=== PATIENT | female | born 2000 | race Caucasian/White ===

== ENCOUNTER → 2019-07-06 08:21 | Outpatient (BNVA) | payer MEDICAID, SELFPAY | PROVIDERS: Family Provider Nurse Practitioner; PCP Nurse Practitioner; Visit Provider Obstetrics & Gynecology | DX: Z01.89 Encounter for other specified special examinations (principal) | CPT/HCPCS: 84315 ==

== ENCOUNTER 2019-07-15 19:10 | Emergency (ER) | payer MEDICAID, SELFPAY ==
[2019-07-15 19:17] VITALS: BP 127/76; PULSE 90; RESP 18; TEMP 36.8; O2SAT 96; BMI 31.3
[2019-07-15 19:32] LABS: Basophils % 0.3 %; Eosinophils # 0.1 10^3/uL (0.0-0.8); Eosinophils % 0.7 %; Hematocrit 36.4 % (37.0-47.0); Hemoglobin 12.4 g/dL (11.5-15.3); Lymphocytes % 16.8 %; Mean Corpuscular HGB Conc 34.1 g/dL (30.0-36.0); Mean Corpuscular Hemoglobin 29.7 pg (28.0-34.0); Mean Corpuscular Volume 87.3 fL (81-99); Mean Platelet Volume 10.2 fL (7.4-10.4); Monocytes # 0.6 10^3/uL (0.2-0.9); Monocytes % 5.2 %; Neutrophils # 9.1 10^3/uL (1.8-8.0); Neutrophils % 76.6 %; Nucleated Red Blood Cells % 0 %; Platelet Count 257 10^3/cmm (130-400); Red Blood Count 4.17 10^6/uL (4.1-5.3); Red Cell Distribution Width 12.9 % (12.1-15.1); White Blood Count 11.8 10^3/uL (4.5-13.0)
[2019-07-15 19:46] LABS: Alanine Aminotransferase < 5 U/L (0-33); Alkaline Phosphatase 64 IU/L (35-105); Anion Gap 14.7 (5-19); Aspartate Amino Transferase 12 U/L (0-32); Blood Urea Nitrogen 5 mg/dL (6-20); Calcium 9.7 mg/dL (8.5-10.5); Carbon Dioxide 24 mmol/L (22-29); Chloride 104 mmol/L (98-107); Glomerular Filtration Rate 157.3 mL/min (90-130); Glucose 110 mg/dL (74-109); Potassium 3.7 mmol/L (3.5-5.1); Sodium 139 mmol/L (136-145); Total Bilirubin 0.2 mg/dL (0.15-1.2)
--- NOTE | 2019-07-15 20:02 | ED_ITS ---
Entered by Nhi Phillips, acting as scribe for Vahid Gates DO Jul 15, 2019 19:10 HPI - General Adult General: Chief complaint: General Medical Stated complaint: ABD PAIN/DIZZY/SENT BY DR BENDER/23 WEEKS PREG Time Seen by Provider: 07/15/19 19:56 Source: patient and family Mode of arrival: ambulatory History of Present Illness: HPI narrative: 18 y/o female presents to the ED with complaint of dizziness/abd/back pain. Pt states she tried to take a nap earlier today but she did not feel any better upon waking. Pt was advised by her OB ( Yoel) to come to the ER for evaluation because she is 23 weeks . Pt states she had a fever ( 100.6) prior to her nap. 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 She denies any bleeding or cramping. MD complaint: Dizziness/abd pain Location: abdomen Radiation: back Severity: mild Pain Consistency: constant Relieving factors: none Associated symptoms: Deny chest pain, confusion, dyspnea, headache(s), nausea, rash, palpitations or vomiting Review of Systems Const: Reports: fever; Denies: chills Eyes: Denies: change in vision or blurry vision ENMT: Reports: ear pain; Denies: painful swallowing, swelling of lips/tongue, bleeding gums, dental pain, Change in hearing, nose bleeds, post nasal drip or facial/sinus pain Card: Denies: chest pain, palpitations, irregular heart rhythm, edema, swelling of feet/ankles, shortness of breath on exertion or shortness of breath when lying down Resp: Denies: shortness of breath, productive cough, non-productive cough or wheezing GI: Reports: abdominal pain; Denies: nausea, vomiting, rectal pain, blood in stool or black tarry stool : Reports: blood in urine; Denies: urinary frequency or urinary urgency Musc: Denies: neck pain, redness or joint warmth Skin/Breast: Denies: rash, itching or redness Neuro: Reports: dizziness; Denies: headache, vertigo, confusion or seizure-like activity Psych: Denies: anxiety, visual hallucinations or auditory hallucinations PFSH ED PFSH: Statuses (acute, chronic, etc) shown below reflect problem list status as previously entered and may not be historically accurate Medical History (Updated 07/11/19 @ 15:02 by Ernie Bender MD) Anxiety (Acute) Blood type O- (Acute) Surgical History (Updated 07/11/19 @ 14:36 by Ernie Bender MD) S/P cholecystectomy (Acute 06/04/17) Laparoscopic. Diagnosis: Chronic [facility]stit[facility] [place] [place] S/P tonsillectomy (Acute) under age 10 Social History Smoking and tobacco status: never smoked Alcohol intake: never Additional social history: well balanced diet Physical Exam Const: GENERAL APPEARANCE: well developed ORIENTATION/CONSCIOUSNESS: Yes oriented to person, Yes oriented to place and Yes oriented to time HENMT: COMMON NORMALS: normocephalic, external ears normal and external nose normal HEAD & SCALP: normocephalic; no scalp tenderness FACE & SINUS: normal facial exam NOSE: external nose normal and no nasal discharge EXTERNAL EAR: Yes external ears normal MOUTH: tongue normal TEETH & GINGIVA: no abnormal tooth and associated gingiva THROAT: posterior oropharynx normal; no peritonsillar mass Eye: COMMON NORMALS: PERRL, EOMs intact bilaterally and conjunctivae normal EYELID: eyelids normal CONJUNCTIVA: Yes conjunctivae normal PUPIL: Yes PERRL Chest: COMMONS NORMALS: inspection of chest normal CHEST: No tenderness Resp: COMMON NORMALS: clear to auscultation bilaterally EFFORT & INSPECTION: No tachypneic, No respiratory distress, No retractions, No uses accessory muscles and No tracheal deviation AUSCULTATION: clear to auscultation bilaterally, no rhonchi, no wheezes and lung sounds not diminished Cardio: COMMON NORMALS: regular rate and regular rhythm RATE: regular rate RHYTHM: regular rhythm HEART SOUNDS: no murmurs PERIPHERAL PULSES: radial pulses present GI: COMMON NORMALS: soft to palpation INSPECTION: No abdominal distension AUSCULTATION: No hyperactive bowel sounds and No hypoactive bowel sounds PALPATION: Yes soft, Yes tender (mild Right side), No guarding and No rigid PERCUSSION: no dullness to percussion and no tympanic to percussion : COMMON NORMALS: Yes no CVA tenderness BLADDER/KIDNEY EXAM: Yes no CVA tenderness Back/Pelvis: COMMON NORMALS: no CVA tenderness Neuro: SENSORIUM/ORIENTATION: Yes oriented to person, Yes oriented to place and Yes oriented to time Psych: COMMON NORMALS: mental status grossly normal Skin: COMMON NORMALS: no rashes or lesions noted GENERAL SKIN EXAM: no rashes or lesions noted Course ED course: 18-year-old presents with right-sided pain, evidently a temperature this afternoon. No CVA tenderness. White blood cell count is 11.8 without left shift. Her flu swabs are negative. Other labs are benign. Ultrasound shows normal fetus, appropriate fluid levels. And also showed Howell Arce contractions. She feels improved, less dizzy after 1.5 L. There is no UTI. She has not had any vaginal bleeding. She will be allowed home. Vital Signs: Vital signs: Vital Signs Temperature 98.2 F 07/15/19 19:17 Pulse Rate 83 07/15/19 23:20 Respiratory Rate 18 07/15/19 23:20 Blood Pressure 118/70 07/15/19 23:20 Pulse Oximetry 99 07/15/19 23:20 [facility] - General Adult Lab Data: Labs: Lab Results 07/15/19 07/15/19 07/15/19 Range/Units 19:28 19:28 19:28 WBC 11.8 (4.5-13.0) 10^3/ uL RBC 4.17 (4.1-5.3) 10^6/u L Hgb 12.4 (11.5-15.3) g/dL Hct 36.4 L (37.0-47.0) % MCV 87.3 (81-99) fL MCH 29.7 (28.0-34.0) pg MCHC 34.1 (30.0-36.0) g/dL RDW 12.9 (12.1-15.1) % Plt Count 257 (130-400) 10^3/c mm MPV 10.2 (7.4-10.4) fL Neut % (Auto) 76.6 % Lymph % (Auto) 16.8 % [place] % (Auto) 5.2 % Eos % (Auto) 0.7 % Baso % (Auto) 0.3 % Neut # (Auto) 9.1 H (1.8-8.0) 10^3/u L Lymph # (Auto) 2.0 (1.5-6.5) 10^3/u L [place] # (Auto) 0.6 (0.2-0.9) 10^3/u L Eos # (Auto) 0.1 (0.0-0.8) 10^3/u L Baso # (Auto) 0.0 (0.0-0.1) 10^3/u L Nucleated RBC % (a uto) 0 % Nucleated RBCs # 0.0 /100WBC Sodium 139 (136-145) mmol/L Potassium 3.7 (3.5-5.1) mmol/L Chloride 104 (98-107) mmol/L Carbon Dioxide 24 (22-29) mmol/L Anion Gap 14.7 (5-19) BUN 5 L (6-20) mg/dL Creatinine 0.5 (0.5-0.9) mg/dL GFR Calculation 157.3 H (90-130) mL/min Glucose 110 H (74-109) mg/dL Calcium 9.7 (8.5-10.5) mg/dL Total Bilirubin 0.2 (0.15-1.2) mg/dL AST 12 (0-32) U/L ALT < 5 (0-33) U/L Alkaline Phosphata se 64 (35-105) IU/L C-Reactive Protein 1.8 (0.0-4.9) mg/L Total Protein 7.0 (6.6-8.7) g/dL Albumin 4.0 (3.5-5.2) g/dL Globulin 3.0 (1.3-4.6) g/dL Lipase 13 (13-60) U/L Urine Color (Yellow) Urine Appearance (CLEAR) Urine pH (5-7) Ur Specific Gravit y (1.005-1.030) Urine Protein (Negative) Urine Glucose (UA) (Normal) Urine Ketones (Negative) Urine Occult Blood (Negative) Urine Nitrate (Negative) Urine Bilirubin (NEGATIVE) Urine Urobilinogen (Negative) mg/dL Ur Leukocyte Pastora ase (Negative) Urine RBC (0-2) /hpf Urine WBC (0-5) /hpf Ur Squamous Epith Cells (0-5) Amorphous Sediment Urine Bacteria (NONE) Influenza Type A A g (Negative) POC Influenza B Ag (Negative) 02/01/20 02/01/20 Range/Units 20:32 22:14 WBC (4.5-13.0) 10^3/ uL RBC (4.1-5.3) 10^6/u L Hgb (11.5-15.3) g/dL Hct (37.0-47.0) % MCV (81-99) fL MCH (28.0-34.0) pg MCHC (30.0-36.0) g/dL RDW (12.1-15.1) % Plt Count (130-400) 10^3/c mm MPV (7.4-10.4) fL Neut % (Auto) % Lymph % (Auto) % [place] % (Auto) % Eos % (Auto) % Baso % (Auto) % Neut # (Auto) (1.8-8.0) 10^3/u L Lymph # (Auto) (1.5-6.5) 10^3/u L [place] # (Auto) (0.2-0.9) 10^3/u L Eos # (Auto) (0.0-0.8) 10^3/u L Baso # (Auto) (0.0-0.1) 10^3/u L Nucleated RBC % (a uto) % Nucleated RBCs # /100WBC Sodium (136-145) mmol/L Potassium (3.5-5.1) mmol/L Chloride (98-107) mmol/L Carbon Dioxide (22-29) mmol/L Anion Gap (5-19) BUN (6-20) mg/dL Creatinine (0.5-0.9) mg/dL GFR Calculation (90-130) mL/min Glucose (74-109) mg/dL Calcium (8.5-10.5) mg/dL Total Bilirubin (0.15-1.2) mg/dL AST (0-32) U/L ALT (0-33) U/L Alkaline Phosphata se (35-105) IU/L C-Reactive Protein (0.0-4.9) mg/L Total Protein (6.6-8.7) g/dL Albumin (3.5-5.2) g/dL Globulin (1.3-4.6) g/dL Lipase (13-60) U/L Urine Color Yellow (Yellow) Urine Appearance Cloudy (CLEAR) Urine pH 7 (5-7) Ur Specific Gravit y 1.010 (1.005-1.030) Urine Protein Neg (Negative) Urine Glucose (UA) Norm (Normal) Urine Ketones Negative (Negative) Urine Occult Blood Neg (Negative) Urine Nitrate Negative (Negative) Urine Bilirubin Neg (NEGATIVE) Urine Urobilinogen 1 H (Negative) mg/dL Ur Leukocyte Pastora ase Negative (Negative) Urine RBC Rare (0-2) /hpf Urine WBC 0-4 H (0-5) /hpf Ur Squamous Epith Cells Rare (0-5) Amorphous Sediment 2+ Urine Bacteria 1+ H (NONE) Influenza Type A A g Negative (Negative) POC Influenza B Ag Negative (Negative) Discharge Plan Discharge Patient Disposition: Home, Self-Care Condition: Stable Prescriptions: No Action Gummies 400 mcg-35 mg- 25 mg-5 mg tablet,chewable 2 tab PO DAILY RF: 0 metoclopramide HCl [Reglan] 10 mg tablet 10 mg PO Q6H PRNRF: 0 folic acid 0.8 mg capsule See Rx Instructions .ROUTE QDAY RF: 0 citalopram [Celexa] 40 mg tablet 40 mg PO QDAY RF: 0 Discharge Orders: Discharge Order (Routine); Ordered 07/15/19 Ordered By: Vahid Gates Referrals: Cecilia Aguilar, NEWSPAPER DELIVERY COUNSELOR-C [Primary Care Provider] - Ernie Bender MD [Physician] - 4-7 days Discharge Diet: Advance as tolerated Discharge Activity: Increase activity as tolerated Patient Instructions: Fever in Adults (ED) Activity Restrictions/Additional Instructions: Return for continued fevers, worsening pain, vomiting liquids or medications, other concerning symptoms. Return also for vaginal bleeding, loss of fluid, etc. Discharge Date/Time: 07/15/19 23:15 Coding Level of Care Code ED Bridge Contractor for Chg Fwd The documentation recorded by the Alan donaldson Ashley, accurately reflects the service I personally performed and the decisions made by Kody smith Jeremy John, DO Jul 15, 2019 19:10
--- NOTE | 2019-07-15 20:07 | USR_ITS ---
PROCEDURE INFORMATION: Exam: US , Limited Exam date and time: 07/15/2019 9:18 PM Age: 18 years old Clinical indication: complicated by abdominal or pelvic pain; Right lower quadrant; Second trimester; Gestational age or lmp: 23 weeks 3 day; ; Additional info: Right tend TECHNIQUE: Imaging protocol: Real-time ultrasound of the maternal uterus with image documentation. Exam focused on the clinical indication. COMPARISON: US OB >= 14 weeks fetus [id number] 07/03/2019 3:08 PM FINDINGS: GESTATION: Gestation: Single intrauterine gestation. Heart rate: 160 bpm. Placenta: Anterior grade 0 placenta. BIOMETRY: Estimated gestational age: 23 weeks 4 days. Estimated due date: Estimated due date 11/07/2019. Femur length: Femur length 4.16 cm, 23 weeks 4 days US/US OB limited [id number] IMPRESSION: 1. Single living intrauterine gestation estimated at 23 weeks 4 days. 2. No abnormality identified.
[2019-07-15 20:27] VITALS: BP 115/79; PULSE 91; RESP 19; O2SAT 96
[2019-07-15 20:29] LABS: C Reactive Protein 1.8 mg/L (0.0-4.9); Lipase 13 U/L (13-60)
[2019-07-15] MEDS: sodium chloride 0.9% 1,000 ML 999 ML IV ×2 (20:49→21:52)
[2019-07-15 21:17] VITALS: BP 115/79; PULSE 83; RESP 18; O2SAT 98
[2019-07-15 21:18] LABS: Add Urine Culture? No; Amorphous Sediment Urine 2+; Bacteria Urine 1+; Bilirubin Urine Neg (NEGATIVE); Blood Urine Neg (Negative); Glucose Urine UA Norm (Normal); Ketones Urine Negative (Negative); Leukocyte Esterase Urine Negative (Negative); Nitrate Urine Negative (Negative); Protein Urine Neg (Negative); RBC Urine RARE /hpf (0-2); Squamous Epithelial Cell Urine RARE (0-5); Urine Appearance Cloudy (CLEAR); Urine Color Yellow (Yellow); Urobilinogen Urine 1 mg/dL (Negative); WBC Urine 0-4 /hpf (0-5); pH Urine 7 (5-7)
[2019-07-15 22:50] LABS: Influenza A by IFA Negative (Negative); Influenza B by IFA Negative (Negative)
[2019-07-15 23:20] VITALS: BP 118/70; PULSE 83; RESP 18; O2SAT 99
--- NOTE | 2019-07-18 12:25 | DCPLANNER ---
military exchange wireless manager had message to schedule a follow up appointment for patient with [facility]. military exchange wireless manager called [facility], spoke with Maria M, gave clinic patients information. military exchange wireless manager was told that patients information would be printed and reviewed. Clinic will call ed case manager and patient with appointment information.
--- NOTE | 2019-07-20 15:42 | DCPLANNER ---
Patient has a follow up appointment scheduled for 07.28.19 at 9:[address] Mckeon.
--- NOTE | 2019-08-04 14:51 | DCPLANNER ---
Patient did attend appointment scheduled for 07.28.19 with [facility].
== END 2019-07-15 23:15 | disposition home or self-care (01) ==
PROVIDERS: Nurse Practitioner Family; Emergency Provider Emergency Medicine; Family Provider Nurse Practitioner; PCP Nurse Practitioner
DX: R10.9 Unspecified abdominal pain (principal); R42 Dizziness and giddiness
CPT/HCPCS: 76815; 80053; 81001; 83690; 85025; 86140; 87804; 96360; 96361; 99283; A9270; J7030

== ENCOUNTER → 2019-07-28 10:05 | Outpatient (BNVA) | payer MEDICAID, SELFPAY | PROVIDERS: Family Provider Nurse Practitioner; PCP Nurse Practitioner; Visit Provider Obstetrics & Gynecology | DX: Z34.92 Encounter for supervision of normal pregnancy, unspecified, second trimester (principal) | CPT/HCPCS: 76815; 81003 ==

== ENCOUNTER 2019-08-07 14:00 | Outpatient (CLI) | payer MEDICAID, SELFPAY ==
[2019-08-07 14:27] VITALS: BP 126/74; PULSE 93; TEMP 37.2
[2019-08-07 14:47] VITALS: BP 114/60; PULSE 97
[2019-08-07 15:07] VITALS: BP 134/73; PULSE 79
[2019-08-07 15:27] VITALS: BP 122/62; PULSE 72
[2019-08-07 15:44] LABS: Bilirubin Urine Neg (NEGATIVE); Blood Urine Neg (Negative); Glucose Urine UA Norm (Normal); Ketones Urine Negative (Negative); Nitrate Urine Negative (Negative); Protein Urine Neg (Negative); Sulfosalicylic Acid Urine Negative; Urine Appearance Clear (CLEAR); Urine Color Yellow (Yellow); Urobilinogen Urine Norm (Negative); pH Urine 8 (5-7)
[2019-08-07 15:45] LABS: Bacteria Urine TRACE; Leukocyte Esterase Urine Negative (Negative); Squamous Epithelial Cell Urine 0-4 (0-5)
[2019-08-07 16:23] VITALS: BP 129/70; PULSE 85; TEMP 37.2
[2019-08-07 16:27] VITALS: TEMP 37.2
[2019-08-07 17:32] VITALS: BMI 32.9
== END 2019-08-07 16:27 | disposition home or self-care (01) ==
LOC: OPOB 14:25 → OBGYN 16:18 → OPOB 08-08 08:44
PROVIDERS: Family Provider Nurse Practitioner; PCP Nurse Practitioner; Visit Provider Obstetrics & Gynecology
DX: O26.899 Other specified pregnancy related conditions, unspecified trimester (principal); Z3A.00 Weeks of gestation of pregnancy not specified; R10.9 Unspecified abdominal pain; M54.9 Dorsalgia, unspecified
CPT/HCPCS: 59025; 81001; 99211

== ENCOUNTER → 2019-08-25 10:42 | Outpatient (BNVA) | payer MEDICAID, SELFPAY | PROVIDERS: Family Provider Nurse Practitioner; PCP Nurse Practitioner; Visit Provider Obstetrics & Gynecology | DX: O26.899 Other specified pregnancy related conditions, unspecified trimester (principal); Z67.91 Unspecified blood type, Rh negative | CPT/HCPCS: 81000; 82950; 85027; 86850 ==

== ENCOUNTER 2019-09-05 14:03 | Outpatient (CLI) | payer MEDICAID, SELFPAY ==
[2019-09-05] VITALS (8 sets, daily range): BP systolic 115–134; BP diastolic 70–79; PULSE 79–97; RESP 16; TEMP 36.6–36.8; BMI 51.3
[2019-09-05 15:27] LABS: Nitrazine Paper, PH Negative
[2019-09-05 15:55] LABS: Basophils % 0.4 %; Eosinophils % 0.4 %; Hematocrit 33.4 % (37.0-47.0); Hemoglobin 11.2 g/dL (11.5-15.3); Lymphocytes # 1.3 10^3/uL (1.5-6.5); Lymphocytes % 15.5 %; Mean Corpuscular HGB Conc 33.5 g/dL (30.0-36.0); Mean Corpuscular Volume 86.5 fL (81-99); Mean Platelet Volume 10.7 fL (7.4-10.4); Monocytes # 0.5 10^3/uL (0.2-0.9); Monocytes % 6.2 %; Neutrophils # 6.5 10^3/uL (1.8-8.0); Neutrophils % 76.9 %; Nucleated Red Blood Cells % 0 %; Platelet Count 228 10^3/cmm (130-400); Red Blood Count 3.86 10^6/uL (4.1-5.3); Red Cell Distribution Width 12.9 % (12.1-15.1); White Blood Count 8.5 10^3/uL (4.5-13.0)
--- NOTE | 2019-09-05 18:45 | P.SS_ITS ---
Short Stay Summary Providers Date of Admit/Discharge: 09/05/19 Attending Provider: Ernie Gabriel MD Primary Care Provider: ROBERT Tobar Chief Complaint: FALL HPI History of Present Illness Eliza Alfonso is a 18 year old female 1, para 0-0-1-0 with an LMP of 02/08/2019 and an EDC of 11/15/2019 based on LMP, which places her at 29- 6/7 weeks gestation. Patient presented to labor and delivery at 14: 09 on 09/05/2019 with the complaint of having fallen at home. This occurred at approximately noon today. She stated that she had tripped and hit the right side of her abdomen on some cement steps. She reports soreness of her lower abdomen. She denied any vaginal bleeding. She denied any cramping. She reported the baby had been moving. She reports 4-5 out of 10 in intensity pain. Care: Mainly provided by Dr. Gabriel at [facility]. care had been uncomplicated. Review of Systems Const: Denies: fever or chills ENMT: Denies: throat pain or nasal congestion Card: Denies: chest pain, palpitations or lightheadedness Resp: Denies: shortness of breath, productive cough, non-productive cough or wheezing GI: Reports: abdominal pain; Denies: nausea, vomiting or diarrhea : Reports: urinary frequency; Denies: difficulty urinating, painful urination, blood in urine, genital itching, vaginal bleeding, vaginal discharge or pelvic pain Neuro: Denies: headache, dizziness or seizure-like activity Psych: Denies: anxiety or depression Endo: Denies: cold intolerance Marshall/Lymph: Denies: easy bruising or easy bleeding Home Meds/Allergies Home Medications and Allergies Home Medications Medication Instructions Recorded Confirmed Type PNV 153-FA 400 mcg-om3 35 mg-dha 2 tab PO DAILY tab 07/03/19 08/29/19 History 25 mg-epa 5 mg-fish oil chew tablet citalopram 40 mg tablet 40 mg PO QDAY tab 07/03/19 08/29/19 History folic acid 0.8 mg capsule See Rx Instructions .ROUTE QDAY 07/03/19 08/29/19 History cap metoclopramide HCl 10 mg tablet 10 mg PO Q6H PRN 07/03/19 08/29/19 History Allergies Allergy/AdvReac Type Severity Reaction Status Date / Time Opioids - Morphine Analogues Allergy Severe severe Verified 09/05/19 16:36 neck and spinal pain ketorolac [From Toradol] Allergy Mild vomiting Verified 09/05/19 16:36 PFSH Acute PFSH: Medical History Anxiety Blood type O- Surgical History S/P cholecystectomy (06/04/17) Laparoscopic. Diagnosis: Chronic cholecystitis. Performed by Dr. Pereyra [facility] in [place], [place]. S/P tonsillectomy under age 10 Family History Mother Heart disease CHF Hypertension Hyperlipidemia Thyroid condition Father Hypertension COPD (chronic obstructive pulmonary disease) Grandmother Hypertension maternal and paternal Hyperlipidemia maternal and paternal Grandfather Hypertension maternal and paternal Hyperlipidemia maternal and paternal Social History Smoking and tobacco status: never smoked Second hand smoke exposure: No Alcohol intake: never Substance/Drug Use: never Lives independently: Yes Household members: spouse Marital status: Current occupational status: employed Current occupation: [employer] History of recent travel: No Current gender identity: Female Special zahraa needs: No Additional social history: Vitals/I&O/Wt Weight last 48 hrs Weight 290 lb Admission vitals: Temperature 97.9, Respirations 18, Pulse 95, Blood pressure 130/75, Stated height 5 foot 3 inches, BMI 51.4 Physical Exam Const: COMMON NORMALS: no apparent distress, average body habitus, alert and well nourished GENERAL APPEARANCE: well developed ORIENTATION/CONSCIOUSNESS: Yes oriented to person, Yes oriented to place and Yes oriented to time Neck/C-Spine: GENERAL: Yes trachea midline Resp: COMMON NORMALS: normal respiratory effort and clear to auscultation bila terally AUSCULTATION: clear to auscultation bilaterally Cardio: COMMON NORMALS: regular rate, regular rhythm, no gallops, no murmurs and no rub RATE: regular rate RHYTHM: regular rhythm GI: COMMON NORMALS: soft to palpation, no hepatosplenomegaly and no masses INSPECTION: Yes normal to inspection and No abdominal wall ecchymosis AUSCULTATION: Yes normoactive bowel sounds PALPATION: Yes soft, Yes tender (Right lower abdomen.), Yes no hepatosplenomegaly and No hernia : EXTERNAL FEMALE EXAM: No hernia UTERUS PALPATION: No uterus tender (Fundal height 31 cm) Neuro: SENSORIUM/ORIENTATION: Yes alert, Yes oriented to person, Yes oriented to place and Yes oriented to time Psych: COMMON NORMALS: affect normal MOOD & AFFECT: Yes euthymic mood Skin: COMMON NORMALS: no rashes or lesions noted GENERAL SKIN EXAM: no rashes or lesions noted Hospital Course Hospital Course: Patient was admitted to the hospital for observation due to having fallen at home and hitting her abdomen. Other than soreness to the abdo men. No bleeding or contractions noted. No other problems were identified. No bruising seen on exam. Initial laboratory testing was performed including a CBC and Kleihauer-Betke which both came back normal. monitor was performed with no heart rate abnormalities detected. Patient was monitored overall for approximately 4 hours. Since patient is doing well at this time with normal laboratory testing and no evidence of abruption detected and normal heart rate monitoring, patient is being discharged home. Patient was instructed to return to labor and delivery if she develops contractions has vaginal bleeding or notices changes and movement. SSS Data Data Completed and Pendin09/05/2019 at 15: 33 CBC: WBC 8.5, hemoglobin 11.2, hematocrit 33.4, platelet 228,000 Kleihauer-Betke: Negative Pending at discharge Category Date Time Status CBC Auto Diff [Co mplete Blood Count w/Auto] Timed Lab 09/05/19 21:00 Ordered Procedures Performed: monitoring: Baseline heart rate 140s with baseline shift to the 120s with moderate variability and accelerations present. No decelerations noted. No definite contractions identified. Diagnoses at Discharge Discharge Diagnosis (1) Fall at home: Status: Acute Qualifiers: Encounter type: initial encounter Qualified Code(s): W19.XXXA - Unspecified fall, initial encounter; Y92.009 - Unspecified place in unspecified non-institutional (private) residence as the place of occurrence of the external cause (2) Encounter for supervision of normal first : Status: Acute Qualifiers: Trimester: third trimester Qualified Code(s): Z34.03 - Encounter for supervision of normal first , third trimester Discharge Plan Discharge Patient Disposition: Home, Self-Care Prescriptions: Continued Gummies 400 mcg-35 mg- 25 mg-5 mg tablet,chewable 2 tab PO DAILY RF: 0 metoclopramide HCl [Reglan] 10 mg tablet 10 mg PO Q6H PRNRF: 0 folic acid 0.8 mg capsule See Rx Instructions .ROUTE QDAY RF: 0 citalopram [Celexa] 40 mg tablet 40 mg PO QDAY RF: 0 Discharge Orders: Discharge Order (Routine); Ordered 09/05/19 Ordered By: Ernie Gabriel Referrals: Ernie Gabriel MD [Physician] - (Keep scheduled appointment later this week in the office.) Diet: Regular Activity: Resume usual activity Attestations Medical Necessity Statement*: Patient was monitored for approximately 4 hours and was then discharged home. Time Spent in Patient Care*: less than 30 min Quality Metrics Clinical Quality Measures: During this hospital stay, did patient experience: None Coding Level of Care Code Acute Midwife for Chg Fwd Diagnoses Fall at home W19.XXXA; Y92.009 Encounter type: initial encounter Encounter for supervision of normal first Z34.03 Trimester: third trimester
== END 2019-09-05 19:29 | disposition home or self-care (01) ==
LOC: OPOB 14:06 → OBGYN 14:07
PROVIDERS: Obstetrics & Gynecology; Family Provider Nurse Practitioner; PCP Nurse Practitioner; Visit Provider Obstetrics & Gynecology
DX: Z34.03 Encounter for supervision of normal first pregnancy, third trimester (principal); Z3A.29 29 weeks gestation of pregnancy; Z91.81 History of falling
CPT/HCPCS: 12345; 36415; 83986; 85025; 85460; 99211

== ENCOUNTER → 2019-09-07 09:47 | Outpatient (BNVA) | payer MEDICAID, SELFPAY | PROVIDERS: Family Provider Nurse Practitioner; PCP Nurse Practitioner; Visit Provider Obstetrics & Gynecology | DX: Z34.03 Encounter for supervision of normal first pregnancy, third trimester (principal) | CPT/HCPCS: 81000 ==

== ENCOUNTER → 2019-09-20 08:48 | Outpatient (BNVA) | payer MEDICAID, SELFPAY | PROVIDERS: Family Provider Nurse Practitioner; PCP Nurse Practitioner; Visit Provider Obstetrics & Gynecology Female Pelvic Medicine and Reconstructive Surgery | DX: Z34.90 Encounter for supervision of normal pregnancy, unspecified, unspecified trimester (principal); Z34.03 Encounter for supervision of normal first pregnancy, third trimester; O26.893 Other specified pregnancy related conditions, third trimester; Z67.91 Unspecified blood type, Rh negative | CPT/HCPCS: 81000 ==

== ENCOUNTER → 2019-10-04 14:12 | Outpatient (BNVA) | payer MEDICAID, SELFPAY | PROVIDERS: Family Provider Nurse Practitioner; PCP Nurse Practitioner; Visit Provider Obstetrics & Gynecology | DX: Z34.03 Encounter for supervision of normal first pregnancy, third trimester (principal) | CPT/HCPCS: 81000 ==

== ENCOUNTER 2019-10-09 21:35 | Outpatient (CLI) | payer MEDICAID, SELFPAY ==
[2019-10-09 21:38] VITALS: BMI 35.2
[2019-10-09 21:39] VITALS: TEMP 36.8
[2019-10-09 21:46] VITALS: BP 140/74; PULSE 94
[2019-10-09 22:01] VITALS: BP 141/81; PULSE 97
[2019-10-09 22:16] VITALS: BP 140/77; PULSE 92
[2019-10-09 22:31] VITALS: BP 136/82; PULSE 101
== END 2019-10-09 22:55 | disposition home or self-care (01) ==
LOC: OPOB 21:37 → OBGYN 21:38
PROVIDERS: Family Provider Nurse Practitioner; PCP Nurse Practitioner; Visit Provider Obstetrics & Gynecology
DX: O36.8190 Decreased fetal movements, unspecified trimester, not applicable or unspecified (principal); Z3A.00 Weeks of gestation of pregnancy not specified
CPT/HCPCS: 59025; 99211

== ENCOUNTER 2019-10-12 16:46 | Outpatient (CLI) | payer MEDICAID, SELFPAY ==
[2019-10-12] VITALS (9 sets, daily range): BP systolic 0–153; BP diastolic 0–84; PULSE 82–101; RESP 16; TEMP 36.9; BMI 35.0
[2019-10-12 17:38] LABS: Add Urine Microscopic? NO
[2019-10-12 17:58] LABS: Basophils % 0.2 %; Eosinophils # 0.1 10^3/uL (0.0-0.8); Eosinophils % 0.5 %; Hematocrit 33.6 % (37.0-47.0); Hemoglobin 11.3 g/dL (11.5-15.3); Lymphocytes # 1.5 10^3/uL (1.5-6.5); Lymphocytes % 14.7 %; Mean Corpuscular HGB Conc 33.6 g/dL (30.0-36.0); Mean Corpuscular Hemoglobin 28.9 pg (28.0-34.0); Mean Corpuscular Volume 85.9 fL (81-99); Monocytes # 0.6 10^3/uL (0.2-0.9); Monocytes % 6.4 %; Neutrophils # 7.7 10^3/uL (1.8-8.0); Neutrophils % 77.6 %; Nucleated Red Blood Cells % 0 %; Platelet Count 238 10^3/cmm (130-400); Red Blood Count 3.91 10^6/uL (4.1-5.3); Red Cell Distribution Width 13.8 % (12.1-15.1); White Blood Count 9.9 10^3/uL (4.5-13.0)
[2019-10-12 18:10] LABS: Alanine Aminotransferase 9 U/L (0-33); Albumin Level 3.6 g/dL (3.5-5.2); Alkaline Phosphatase 121 IU/L (35-105); Anion Gap 16.9 (5-19); Aspartate Amino Transferase 17 U/L (0-32); Blood Urea Nitrogen 4 mg/dL (6-20); Carbon Dioxide 20 mmol/L (22-29); Chloride 105 mmol/L (98-107); Globulin 2.9 g/dL (1.3-4.6); Glomerular Filtration Rate 157.3 mL/min (90-130); Glucose 106 mg/dL (65-115); Osmolality Calculated 282 mOsm/kg (285-295); Potassium 3.9 mmol/L (3.5-5.1); Sodium 138 mmol/L (136-145); Total Bilirubin 0.2 mg/dL (0.15-1.2); Total Protein 6.5 g/dL (6.6-8.7); Uric Acid 3.4 mg/dL (2.4-5.7)
[2019-10-12 18:16] LABS: Bilirubin Urine Neg (NEGATIVE); Blood Urine Neg (Negative); Glucose Urine UA Norm (Normal); Ketones Urine Negative (Negative); Leukocyte Esterase Urine Negative (Negative); Nitrate Urine Negative (Negative); Protein Urine Neg (Negative); Sulfosalicylic Acid Urine Negative (Negative); Urine Appearance Clear (CLEAR); Urine Color Straw (Yellow); Urobilinogen Urine Norm (Negative); pH Urine 8 (5-7)
[2019-10-12 18:36] LABS: Urine Creatinine 52 mg/dL (28-217); Urine Protein Random 6 mg/dL
[2019-10-12 18:40] LABS: UPRO/UCREAT Ratio 0.12 mg/mg CR
--- NOTE | 2019-10-13 20:29 | PC.NURSE ---
Dr. Gabriel at nurses station when patient arrived to turn in 24 hour urine. states that she does not need a BP check or be triaged at this time and to have patient continue to monitor BP at home. Patient denies any symptoms at this time.
[2019-10-13 22:19] LABS: Total Volume, Urine 2850 mL
== END 2019-10-12 19:09 | disposition home or self-care (01) ==
LOC: OPOB 16:48 → OBGYN 19:02
PROVIDERS: Obstetrics & Gynecology; Family Provider Nurse Practitioner; PCP Nurse Practitioner; Visit Provider Obstetrics & Gynecology
DX: O16.9 Unspecified maternal hypertension, unspecified trimester (principal); Z3A.00 Weeks of gestation of pregnancy not specified
CPT/HCPCS: 36415; 59025; 80053; 81003; 82570; 84156; 84550; 85025; 99211

== ENCOUNTER 2019-10-13 08:00 | Outpatient (CLI) | payer MEDICAID, SELFPAY | END 2019-10-13 08:01 | disposition home or self-care (01) | LOC: LAB 11-08 10:43 | PROVIDERS: Visit Provider Obstetrics & Gynecology | DX: Z01.89 Encounter for other specified special examinations (principal) | CPT/HCPCS: 84156 ==

== ENCOUNTER → 2019-10-19 08:30 | Outpatient (BNVA) | payer MEDICAID, SELFPAY | PROVIDERS: Family Provider Nurse Practitioner; PCP Nurse Practitioner; Visit Provider Obstetrics & Gynecology | DX: Z34.90 Encounter for supervision of normal pregnancy, unspecified, unspecified trimester (principal) | CPT/HCPCS: 81000; 87081 ==

== ENCOUNTER → 2019-10-26 14:42 | Outpatient (BNVA) | payer MEDICAID, SELFPAY | PROVIDERS: Family Provider Nurse Practitioner; PCP Nurse Practitioner; Visit Provider Obstetrics & Gynecology | DX: Z34.03 Encounter for supervision of normal first pregnancy, third trimester (principal) | CPT/HCPCS: 81000 ==

== ENCOUNTER 2019-11-02 10:15 | Outpatient (CLI) | payer MEDICAID, SELFPAY ==
[2019-11-02] VITALS (15 sets, daily range): BP systolic 134–157; BP diastolic 77–94; PULSE 82–91; RESP 18; TEMP 36.6; BMI 35.9
--- NOTE | 2019-11-02 10:41 | US_ITS ---
WS: [id number] ULTRASOUND OB LIMITED TECHNIQUE: Limited ultrasound examination of the fetus. CLINICAL INFORMATION: Hypertension COMPARISON: None. FINDINGS: Cervix 3.7 cm Single interuterine gestation. presentation is vertex Placental location is anterior. Placenta grade: 3 heart rate 138 BPM. Normal AVEL 12.7 cm Biophysical profile 8 out of 8. breathin movement: 2 tone: 2 Amniotic fluid: 2 IMPRESSION Normal biophysical profile 8 out of 8
[2019-11-02 10:52] LABS: Add Urine Microscopic? NO
[2019-11-02 11:04] LABS: Bilirubin Urine Neg (NEGATIVE); Blood Urine Neg (Negative); Glucose Urine UA Norm (Normal); Ketones Urine Negative (Negative); Leukocyte Esterase Urine Negative (Negative); Nitrate Urine Negative (Negative); Protein Urine Neg (Negative); Sulfosalicylic Acid Urine Negative (Negative); Urine Appearance Clear (CLEAR); Urine Color Straw (Yellow); Urobilinogen Urine Norm (Negative)
[2019-11-02 11:05] LABS: Basophils % 0.2 %; Eosinophils # 0.1 10^3/uL (0.0-0.8); Eosinophils % 0.5 %; Hemoglobin 11.8 g/dL (11.5-15.3); Lymphocytes # 1.7 10^3/uL (1.5-6.5); Lymphocytes % 16.5 %; Mean Corpuscular HGB Conc 33.7 g/dL (30.0-36.0); Mean Corpuscular Hemoglobin 29.1 pg (28.0-34.0); Mean Corpuscular Volume 86.2 fL (81-99); Mean Platelet Volume 11.4 fL (7.4-10.4); Monocytes # 0.7 10^3/uL (0.2-0.9); Monocytes % 7.1 %; Neutrophils # 7.8 10^3/uL (1.8-8.0); Neutrophils % 74.8 %; Nucleated Red Blood Cells % 0 %; Platelet Count 243 10^3/cmm (130-400); Red Blood Count 4.06 10^6/uL (4.1-5.3); White Blood Count 10.5 10^3/uL (4.5-13.0)
[2019-11-02 11:19] LABS: Urine Creatinine 36 mg/dL (28-217); Urine Protein Random 5 mg/dL
[2019-11-02 11:28] LABS: UPRO/UCREAT Ratio 0.14 mg/mg CR
--- NOTE | 2019-11-02 12:16 | PC.NURSE ---
THIS PROPELLER LAYOUT WORKER CALLED LAB AT 1145 AND WAS TOLD THAT RESULTS WOULD BE DONE IN 10 MINUTES. CALLED BACK AT 1215 STILL NO RESULTS WAS TOLD THAT IT WOULD BE ANOTHER 10 MINUTES.
[2019-11-02 12:25] LABS: Alanine Aminotransferase 11 U/L (0-33); Albumin Level 3.7 g/dL (3.5-5.2); Alkaline Phosphatase 144 IU/L (35-105); Aspartate Amino Transferase 20 U/L (0-32); Blood Urea Nitrogen 6 mg/dL (6-20); Calcium 8.8 mg/dL (8.5-10.5); Carbon Dioxide 18 mmol/L (22-29); Chloride 104 mmol/L (98-107); Globulin 2.4 g/dL (1.3-4.6); Glomerular Filtration Rate 127.5 mL/min (90-130); Glucose 78 mg/dL (65-115); Osmolality Calculated 275 mOsm/kg (285-295); Sodium 135 mmol/L (136-145); Total Bilirubin 0.2 mg/dL (0.15-1.2); Total Protein 6.1 g/dL (6.6-8.7); Uric Acid 4.7 mg/dL (2.4-5.7)
== END 2019-11-02 13:08 | disposition home or self-care (01) ==
LOC: OPOB 10:16 → OBGYN 10:17 → OPOB 10:23 → OBGYN 12:49
PROVIDERS: Family Provider Nurse Practitioner; PCP Nurse Practitioner; Visit Provider Obstetrics & Gynecology
DX: O16.9 Unspecified maternal hypertension, unspecified trimester (principal); Z3A.00 Weeks of gestation of pregnancy not specified
CPT/HCPCS: 36415; 59025; 76819; 80053; 81000; 81003; 82570; 84156; 84550; 85025; 99211; G0378

== ENCOUNTER 2019-11-03 00:13 | Outpatient (CLI) | payer MEDICAID, SELFPAY ==
[2019-11-03 00:15] VITALS: BP 139/84; PULSE 82; RESP 18; TEMP 36.6; BMI 35.9
[2019-11-03 00:24] VITALS: BP 139/84; PULSE 85
[2019-11-03 00:42] VITALS: BP 0/0
[2019-11-03 00:44] VITALS: BP 152/84; PULSE 78
[2019-11-03 00:59] LABS: Nitrazine Paper, PH Negative
[2019-11-03 01:05] VITALS: BP 152/84; PULSE 86; RESP 16; TEMP 37.2
--- NOTE | 2019-11-03 02:21 | PC.NURSE ---
Discharge instructions given and pt. and spouse ambulated off OB floor
== END 2019-11-03 01:05 | disposition home or self-care (01) ==
LOC: OPOB 00:15 → OBGYN 01:01
PROVIDERS: Family Provider Nurse Practitioner; PCP Nurse Practitioner; Visit Provider Obstetrics & Gynecology
DX: O26.899 Other specified pregnancy related conditions, unspecified trimester (principal); Z3A.00 Weeks of gestation of pregnancy not specified; N89.8 Other specified noninflammatory disorders of vagina
CPT/HCPCS: 59025; 83986; 99211

== ENCOUNTER 2019-11-03 14:54 | Outpatient (CLI) | payer MEDICAID, SELFPAY ==
[2019-11-03 16:49] LABS: Total Volume, Urine 2600 mL
== END 2019-11-03 14:55 | disposition home or self-care (01) ==
LOC: LAB 14:59
PROVIDERS: Family Provider Nurse Practitioner; PCP Nurse Practitioner; Visit Provider Obstetrics & Gynecology
DX: I10 Essential (primary) hypertension (principal)
CPT/HCPCS: 84156

== ENCOUNTER 2019-11-04 10:09 | Outpatient (CLI) | payer MEDICAID, SELFPAY ==
[2019-11-04 10:25] VITALS: BP 138/84; PULSE 90; RESP 18; TEMP 37.3
[2019-11-04 10:41] VITALS: BP 133/75; PULSE 87; RESP 18
[2019-11-04 10:48] VITALS: BP 133/75; PULSE 87; RESP 18; TEMP 37.3
--- NOTE | 2019-11-04 11:14 | PM.ACPR ---
NST (Non-Stress Test) NST : 1 Para: 0 Due date: 11/15/19 Gestational age (weeks): 38 Indications: Gestational hypertension in third trimester at 38-3/7 weeks gestation Test: NST Time: 10:24 Length of test in Minutes: 23 Contractions: None Fetus Fetus 1: Baseline FHR BMP:: 125 Variability: Moderate Accelerations: Present Decelerations: None Reacticity: Reactive Interpretation/Plan Interpretation by: Ernie Gabriel Comments: Reactive NST with no decelerations.
[2019-11-04 11:33] VITALS: BMI 36.1
== END 2019-11-04 10:48 | disposition home or self-care (01) ==
LOC: OPOB 10:18 → OBGYN 10:18
PROVIDERS: PCP Nurse Practitioner; Visit Provider Obstetrics & Gynecology
DX: O16.9 Unspecified maternal hypertension, unspecified trimester (principal); Z3A.00 Weeks of gestation of pregnancy not specified
CPT/HCPCS: 59025; 99211

== ENCOUNTER 2019-11-06 14:09 | Inpatient (IN) | payer MEDICAID, SELFPAY ==
[2019-11-06] VITALS (94 sets, daily range): BP systolic 0–181; BP diastolic 0–109; PULSE 70–94; RESP 16–18; TEMP 36.9–37.1; O2SAT 91–100; BMI 36.1
[2019-11-06 15:13] LABS: Add Urine Microscopic? NO
[2019-11-06 15:16] LABS: Basophils % 0.2 %; Eosinophils % 0.3 %; Hematocrit 34.7 % (37.0-47.0); Hemoglobin 11.7 g/dL (11.5-15.3); Lymphocytes # 1.6 10^3/uL (1.5-6.5); Lymphocytes % 12.7 %; Mean Corpuscular HGB Conc 33.7 g/dL (30.0-36.0); Mean Corpuscular Volume 86.1 fL (81-99); Monocytes % 7.8 %; Neutrophils # 9.9 10^3/uL (1.8-8.0); Neutrophils % 78.3 %; Nucleated Red Blood Cells % 0 %; Platelet Count 237 10^3/cmm (130-400); Red Blood Count 4.03 10^6/uL (4.1-5.3); White Blood Count 12.7 10^3/uL (4.5-13.0)
[2019-11-06 15:19] LABS: Bilirubin Urine Neg (NEGATIVE); Blood Urine Neg (Negative); Glucose Urine UA Norm (Normal); Ketones Urine Negative (Negative); Leukocyte Esterase Urine Negative (Negative); Nitrate Urine Negative (Negative); Protein Urine Neg (Negative); Sulfosalicylic Acid Urine Negative (Negative); Urine Appearance Clear (CLEAR); Urine Color Straw (Yellow); Urobilinogen Urine Norm (Negative); pH Urine 8 (5-7)
[2019-11-06] MEDS: labetalol 5 mg/mL SDV 20mL 20 MG IVP ×2 (15:35→20:27)
[2019-11-06 15:37] LABS: Urine Creatinine 25 mg/dL (28-217); Urine Protein Random 4 mg/dL
[2019-11-06 15:39] LABS: UPRO/UCREAT Ratio 0.16 mg/mg CR
[2019-11-06 15:50] LABS: Alanine Aminotransferase 10 U/L (0-33); Albumin Level 3.7 g/dL (3.5-5.2); Alkaline Phosphatase 152 IU/L (35-105); Anion Gap 17.4 (5-19); Blood Urea Nitrogen 5 mg/dL (6-20); Carbon Dioxide 19 mmol/L (22-29); Chloride 104 mmol/L (98-107); Globulin 2.4 g/dL (1.3-4.6); Glomerular Filtration Rate 157.3 mL/min (90-130); Glucose 78 mg/dL (65-115); Osmolality Calculated 277 mOsm/kg (285-295); Potassium 4.4 mmol/L (3.5-5.1); Sodium 136 mmol/L (136-145); Total Bilirubin 0.2 mg/dL (0.15-1.2); Total Protein 6.1 g/dL (6.6-8.7); Uric Acid 4.2 mg/dL (2.4-5.7)
[2019-11-06 16:08] LABS: Aspartate Amino Transferase 22 U/L (0-32)
[2019-11-06] MEDS: miSOPROStol 100 mcg tablet 25 MCG VAGINAL (16:49)
[2019-11-06] MEDS: dextrose 5%-lactated ringers 1,000 ML 100 ML IV (18:22)
[2019-11-06] MEDS: acetaminophen 325 mg Tablet 650 MG PO (19:14)
[2019-11-06] MEDS: lactated ringers 1,000 ML 999 ML IV ×2 (21:13→21:26)
--- NOTE | 2019-11-06 23:03 | ANES.PREANE2 ---
Pre-Anesthetic Assessment Pre-Anesthetic Assessment: Height/Weight: Height 1.6 m Weight 92.533 kg Temp Pulse Resp BP Pulse Ox 98.6 F 79 16 143/92 98 11/06/19 16:40 11/06/19 23:01 11/06/19 16:40 11/06/19 23:01 11/06/19 22:59 Preop Diagnosis: Labor Pain Proposed Procedure: SHELLEY Was Beta Deya taken within 24 hours: Yes (1200) Social: Social History: No alcohol and No tobacco Exam: Pre-Anes Outpt Exam: alert, oriented x 3, clear to auscultation bilaterally and regular rate & rhythm Airway: Submandibular: WNL Cervical ROM: WNL MP: 2 Dentition: Full History/ROS: No significant history except as noted and No significant complaints Pulmonary: Pulmonary: None reported CV/HEM: CV/HEM: HTN (PIH) : : None reported Hepatic: Hepatic: None reported GI: GI: None reported Metabolic: Metabolic: None reported Musc/skel: Musc/skel: None reported Neuropsych: Neuropsych: None reported Anesthetic Plan: ASA status: 2 Anesthesia: Anesthesia Evaluation and Regional (specify below) Other: shelley Risk of > 500 ml blood loss (7ml/kg in children): No Meds/Allergies Current Medications: Current Medications Generic Name Dose Route Start Last Admin Trade Name Freq PRN Reason Stop Dose Admin Acetaminophen 650 mg 11/06/19 15:04 11/06/19 19:14 Tylenol PO 650 mg Q6H PRN Administration Mild pain or temp > 100.4 Dextrose/Lactated Ringer's 1,000 mls @ 125 m ls/hr 11/06/19 15:15 11/06/19 18:22 Dextrose 5%-Lact ated Ringers IV 100 mls/hr .Q8H ROSA Administration Lactated Ringer's 1,000 mls @ 999 m ls/hr 11/06/19 15:04 11/06/19 21:26 Lactated Ringers IV 999 mls/hr .Q1H1M PRN Administration BLEEDING Labetalol HCl 20 mg 11/06/19 15:23 11/06/19 20:27 Trandate IVP 20 mg PROTOCOL PRN Administration HYPERTENSION Protocol Misoprostol 25 mcg 11/06/19 16:40 11/06/19 16:49 Cytotec VAGINAL 11/07/19 00:46 25 mcg Q4H PRN Administration Induction PFSH Anesthesia PFSH: Medical History (Updated 11/06/19 @ 15:31 by Ernie Gabriel MD) Anxiety Blood type O- Surgical History S/P cholecystectomy (06/04/17) Laparoscopic. Diagnosis: Chronic cholecystitis. Performed by Dr. Pereyra [facility] in [place], [place]. S/P tonsillectomy under age 10 Family History Mother Heart disease CHF Hypertension Hyperlipidemia Thyroid condition Father Hypertension COPD (chronic obstructive pulmonary disease) Grandmother Hypertension maternal and paternal Hyperlipidemia maternal and paternal Grandfather Hypertension maternal and paternal Hyperlipidemia maternal and paternal Social History Smoking and tobacco status: never smoked Alcohol intake: never Substance/Drug Use: never Female Reproductive History: : 1 Data Anesthesia CBC & Chem 7: 11/06/19 14:45 11/06/19 14:45 Other Labs: Laboratory Results - last 48 hr 11/06/19 11/06/19 11/06/19 14:10 14:10 14:45 WBC 12.7 RBC 4.03 L Hgb 11.7 Hct 34.7 L MCV 86.1 MCH 29.0 MCHC 33.7 RDW 14.0 Plt Count 237 MPV 12.0 H Neut % (Auto) 78.3 Lymph % (Auto) 12.7 [place] % (Auto) 7.8 Eos % (Auto) 0.3 Baso % (Auto) 0.2 Neut # (Auto) 9.9 H Lymph # (Auto) 1.6 [place] # (Auto) 1.0 H Eos # (Auto) 0.0 Baso # (Auto) 0.0 Nucleated RBC % (auto) 0 Nucleated RBCs # 0.0 Sodium Potassium Chloride Carbon Dioxide Anion Gap BUN Creatinine GFR Calculation Glucose Calculated Osmolality Uric Acid Calcium Total Bilirubin AST ALT Alkaline Phosphatase Total Protein Albumin Globulin Urine Color Straw Urine Appearance Clear Urine pH 8 H Ur Specific [place] 1.010 Urine Protein Neg Urine Glucose (UA) Norm Urine Ketones Negative Urine Blood Neg Urine Nitrate Negative Urine Bilirubin Neg Prot Sulfosalicylic Acd Negative Urine Urobilinogen Norm Ur Leukocyte Esterase Negative U Random Total Protein 4 Urine Creatinine 25 L Protein/Creatinin Ratio 0.16 11/06/19 14:45 WBC RBC Hgb Hct MCV MCH MCHC RDW Plt Count MPV Neut % (Auto) Lymph % (Auto) [place] % (Auto) Eos % (Auto) Baso % (Auto) Neut # (Auto) Lymph # (Auto) [place] # (Auto) Eos # (Auto) Baso # (Auto) Nucleated RBC % (auto) Nucleated RBCs # Sodium 136 Potassium 4.4 Chloride 104 Carbon Dioxide 19 L Anion Gap 17.4 BUN 5 L Creatinine 0.5 GFR Calculation 157.3 H Glucose 78 Calculated Osmolality 277 L Uric Acid 4.2 Calcium 9.0 Total Bilirubin 0.2 AST 22 ALT 10 Alkaline Phosphatase 152 H Total Protein 6.1 L Albumin 3.7 Globulin 2.4 Urine Color Urine Appearance Urine pH Ur Specific [place] Urine Protein Urine Glucose (UA) Urine Ketones Urine Blood Urine Nitrate Urine Bilirubin Prot Sulfosalicylic Acd Urine Urobilinogen Ur Leukocyte Esterase U Random Total Protein Urine Creatinine Protein/Creatinin Ratio Cardiac Studies: No Data to Display
--- NOTE | 2019-11-06 23:06 | P.ANES_ITS ---
Anesthesia Procedures Procedure/Date: 11/06/19 Epidural: Time Out Performed: Yes Consents Signed: Procedure Consent Consent: requested by attending/covering physician and from patient Lumbar Level: L2-L3 Epidural position: sitting Epidural procedure: sterile prep of area, 1% lidocaine to numb the area, 18 g needle, neg for paresthesia, test d ose given, 1.5% xylocaine 1:200k epi, 0.2% Ropivacaine bolus ml, placed PCEA, no systemic response, sterile dressing applied, L.U.D. no apparent complications and 0.2% Ropiavacaine @ mls/hr Additional Comments: Ropiv 0.2% 8cc and Fentanyl 100 mcg Bolus. IRISH at 9cm
[2019-11-07] VITALS (154 sets, daily range): BP systolic 0–181; BP diastolic 0–129; PULSE 66–110; RESP 16–19; TEMP 36.6–37; O2SAT 90–100
--- NOTE | 2019-11-07 01:08 | PC.NURSE ---
Epidural for pain management
[2019-11-07] MEDS: oxytocin 30 UNIT/500 ML BAG IV (02:04)
[2019-11-07] MEDS: dextrose 5%-lactated ringers 1,000 ML 100 ML IV (03:21)
[2019-11-07] MEDS: labetalol 5 mg/mL SDV 20mL IVP ×4 (08:20→16:53)
[2019-11-07 10:10] LABS: UPRO/UCREAT Ratio 0.48 mg/mg CR; Urine Creatinine 23 mg/dL (28-217); Urine Protein Random 11 mg/dL
[2019-11-07] MEDS: magnesium sulfate premix 4 GM/100 ML PREMIX IV (10:38)
[2019-11-07] MEDS: magnesium sulfate premix 20 GM/500 ML BAG IV ×2 (10:58→19:39)
[2019-11-07] MEDS: hyDROXYzine 25 mg Capsule 50 MG PO (11:56)
[2019-11-07] MEDS: dextrose 5%-lactated ringers 1,000 ML 69 ML IV (12:21)
[2019-11-07] MEDS: fentaNYL 50 mcg/mL INJ 2mL 25 MCG IVP (12:47)
--- NOTE | 2019-11-07 12:57 | PC.NURSE ---
Case Filler spoke to Dr. Calderon in anesthesia regarding patient's discomfort with her epidural. Dr. Calderon states to give her allotted boluses for this hour and see if that resolves her pain.
[2019-11-07] MEDS: miSOPROStol 200 mcg Tablet 800 MCG PR (15:02)
--- NOTE | 2019-11-07 15:52 | P.PCNOB_ITS ---
Delivery Note: Date of delivery: November 07, 2019 Pre-delivery diagnoses: 18-year-old 1 para 0 at 38 weeks and 5 days Severe gestational hypertension which developed into severe preeclampsia prior to delivery-on magnesium Depression on citalopram Rh- status Post-delivery diagnoses: Vaginal delivery on 11/07/2019 Severe preeclampsia on magnesium Procedure: Vaginal delivery on 11/07/2019 Op report anesthesia: Epidural and Local Delivering Physician: Marco Guerrero Pre-Delivery Course: Ms. Alfonso is a 18-year-old 1 para 0 at 38 weeks and 5 days who presented to labor and delivery on 11/06/2019 with report of contractions. Contractions were sporadic however she was noted of elevated blood pressures in the 150s that progressed to the 160s. Lab work for preeclampsia was done and was negative with a protein creatinine ratio of 0.1. However given her elevated blood pressure she met criteria for gestational hypertension and was admitted for induction. She received her first dose of Cytotec at 4:45 PM on 11/06/2019. Her cervix was 1 cm, 50% and -2 station at that time. With this she was uncomfortable and made minimal cervical change to 2 cm 50% and -2 but was beatrice frequently. During this time her blood pressure would have severe elevations and she received IV labetalol which helped control this. An epidural was placed at midnight and after that she was relatively comfortable. She made no further cervical change however was beatrice every 1 to 2 minutes-too frequently for Cytotec. She was started on Pitocin at 2 AM titrated to a maximum of 6 mIU. With this she made some cervical change and at 7:30 AM was 3 to 4 cm, 80% and -2 station. She had artificial rupture of membranes with thick meconium at that time. She was extremely uncomfortable and felt a lot of pressure when attempt was made to make her comfortable with the epidural. During this time she had multiple severe elevations and repeat protein creatinine ratio was performed which is elevated at 0.48 and she was given the diagnosis of severe preeclampsia and started on magnesium sulfate for seizure prophylaxis. She was 6 cm at 1 PM and made rapid cervical change after this and was fully dilated at 2:15 PM and uncomfortable and ready to push. When she was fully dilated she was extremely uncomfortable and blood pressures were in the severe range. Delivery: She was set up in lithotomy position and was pushing effectively. She was noted to be +3 station and continued pushing well. The head delivered in FERNANDO position, nuchal cord x1 was present. The shoulders and rest of the body followed with her next push. The baby's mouth and nose were suctioned and the baby was handed to the waiting associate buyer Dr. Ch. The placenta delivered spontaneously intact with membranes and was discarded. The fundus was noted to be firm and well contracted. The lower uterine segment however was boggy and required continued massage and she received 800 mcg of Cytotec per rectum after which the tone improved. The vagina and cervix were inspected and no cervical or sulcal lacerations were noted. The perineum was intact except for a first- degree vaginal laceration that extended up the left labia majora. She also had a periurethral midline tear which was repaired with 3-0 Vicryl on an SH in a continuous interlocking fashion. The vaginal laceration was also repaired without any difficulty and good hemostasis was noted. Baby girl, Martha Sherman born at 2:37 PM with 8/9, weighing 5 pounds 15 ounces, 2680 g, 19-1/2 inches long. Placenta was delivered spontaneously intact with membranes at 2:42 PM. Cotyledons were intact , centrally inserted umbilical cord with 3 vessels noted. Estimated blood loss 450 mL. Complications-none, both baby and mother were left to recovery in a stable condition. Plan is for mother to continue magnesium sulfate for 24 hours for seizure prophylaxis. 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
[2019-11-07] MEDS: lidocaine 2% INJ 20 mL INJECTION (16:33)
[2019-11-07] MEDS: HYDROcodone-acetaminophen 5-325 mg Tablet PO (16:51)
[2019-11-07 17:54] LABS: Magnesium Level (OB Only) 5.7 mg/dL (5.0-7.5)
[2019-11-07] MEDS: dextrose 5%-lactated ringers 1,000 ML 125 ML IV (19:00)
[2019-11-07] MEDS: benzocaine-menthol 78 gm Canister 1 SPRAY TOPICAL (19:38)
[2019-11-07] MEDS: lanolin oint 7 gm 1 APPLIC TOPICAL (19:39)
[2019-11-07] MEDS: docusate sodium 100 mg Capsule PO (19:39)
[2019-11-07 22:44] LABS: Magnesium Level (OB Only) 6.2 mg/dL (5.0-7.5)
[2019-11-08] VITALS (19 sets, daily range): BP systolic 121–146; BP diastolic 71–92; PULSE 79–110; RESP 16–20; TEMP 36.3–36.9; O2SAT 96–100
[2019-11-08] MEDS: dextrose 5%-lactated ringers 1,000 ML 125 ML IV (03:00)
[2019-11-08 03:55] LABS: Hematocrit 27.3 % (37.0-47.0); Hemoglobin 9.1 g/dL (11.5-15.3); Mean Corpuscular HGB Conc 33.3 g/dL (30.0-36.0); Mean Corpuscular Volume 90.1 fL (81-99); Mean Platelet Volume 11.1 fL (7.4-10.4); Platelet Count 194 10^3/cmm (130-400); Red Blood Count 3.03 10^6/uL (4.1-5.3); Red Cell Distribution Width 14.5 % (12.1-15.1); White Blood Count 13.9 10^3/uL (4.5-13.0)
[2019-11-08 05:03] LABS: Magnesium Level (OB Only) 12.7 mg/dL (5.0-7.5)
[2019-11-08] MEDS: magnesium sulfate premix 20 GM/500 ML BAG IV (05:39)
[2019-11-08 05:50] LABS: Magnesium Level (OB Only) 6.8 mg/dL (5.0-7.5)
[2019-11-08] MEDS: ferrous sulfate EC 325 mg Tablet PO (07:37)
[2019-11-08] MEDS: prenatal vitamin Capsule 1 CAP PO (08:51)
[2019-11-08] MEDS: docusate sodium 100 mg Capsule PO ×2 (08:51→17:29)
--- NOTE | 2019-11-08 10:01 | P.PN_ITS ---
Subjective Subjective: Interval history: Ms. Alfonso is doing okay. She feels much better now and is tolerating the magnesium sulfate well. Continues to have a few elevated blood pressures but denies any headaches, blurry vision, scotoma. She denies any respiratory problems, chest pain, shortness of breath, nausea, vomiting. She is tolerating ice chips well. Catheter and SCDs are in place. She denies heavy vaginal bleeding and is breast and bottlefeeding the baby. She denies any depressive symptoms. Vitals/I&O/Wt Last Vital Signs Temp 97.5 F L 11/08/19 09:34 Pulse 89 11/08/19 09:34 Resp 18 11/08/19 09:34 BP 142/86 11/08/19 09:34 Pulse Ox 100 11/08/19 09:34 11/07/19 11/08/19 11/08/19 22:59 06:59 14:59 Intake Total 928.566 / 3061.784 1500 / 4561.784 957.917 / 957.917 Output Total 5 / 4025 1490 / 5515 815 / 815 Balance -1096.434 / -963.216 10 / -953.216 142.917 / 142.917 Weight last 48 hrs Weight 204 lb Physical Exam Narrative: EXAM NARRATIVE: Gen.: No acute distress Heart: S1-S2 heard, regular rate and rhythm Lungs: Clear to auscultation bilaterally Abdomen: Soft, fundus firm below umbilicus, Legs: No calf tenderness, trace bilateral pitting pedal edema. 2+ reflexes bilaterally Urinary Catheter Management^: Cody: Cath Placed During This Visit: yes Reason for Continuing Indwelling Catheter: Accurate Measurement of Urinary Output in Critically Ill Patients Urinary Catheter Date of Insertion: 11/07/19 Urinary Catheter Time of Insertion: 15:00 Data : 11/08/19 03:30 11/06/19 14:45 A&P Assessment and plan (1) Pre-eclampsia: Status: Acute (2) Mental disorder affecting : Status: Acute Qualifiers: Trimester: second trimester Qualified Code(s): O99.342 - Other mental disorders complicating , second trimester (3) Encounter for supervision of normal first : Status: Acute Qualifiers: Trimester: third trimester Qualified Code(s): Z34.03 - Encounter for supervision of normal first , third trimester (4) Rh negative status during : Status: Acute Qualifiers: Trimester: third trimester Qualified Code(s): O26.893 - Other specified related conditions, third trimester; Z67.91 - Unspecified blood type, Rh negative Additional A&P Information 18-year-old 1 para 0 status post vaginal delivery on 11/07/2019, post day #1 -Preeclampsia-currently receiving 24 hours of magnesium . Magnesium levels are within range-plan is to discontinue magnesium at 24 hours and reassess blood pressure at that time. She understands the possibility of needing IV/p.o. blood pressure medications depending upon what her blood pressures doing -DVT prophylaxis-SCDs -Doing well recovering from a vaginal delivery-ambulate, for removal of Cody catheter and advance diet to regular once magnesium is discontinued -Anticipate discharge home tomorrow depending on how she is doing -P.o. pain medication as needed. 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 Fwd Diagnoses Pre-eclampsia O14.90 Mental disorder affecting O99.342 Trimester: second trimester Encounter for supervision of normal first Z34.03 Trimester: third trimester Rh negative status during O26.893; Z67.91 Trimester: third trimester
[2019-11-08 12:04] LABS: Magnesium Level (OB Only) 7.1 mg/dL (5.0-7.5)
[2019-11-09] VITALS: BP 130/85; PULSE 99; RESP 16; TEMP 36.9; O2SAT 98
[2019-11-09 02:00] VITALS: BP 133/86; PULSE 99; RESP 16; TEMP 36.7; O2SAT 98
[2019-11-09 04:00] VITALS: BP 127/78; PULSE 99; RESP 16; TEMP 36.8; O2SAT 97
[2019-11-09] MEDS: docusate sodium 100 mg Capsule PO (08:25)
[2019-11-09] MEDS: prenatal vitamin Capsule 1 CAP PO (08:25)
[2019-11-09 08:40] VITALS: BP 133/84; PULSE 90; RESP 18; TEMP 36.8; O2SAT 97
--- NOTE | 2019-11-09 10:53 | PM.DCS ---
Discharge Providers Date of Admission: 11/06/19 15:06 Date of Discharge: November 09, 2019 Attending Provider at Admission: Marco Guerrero FACOG Attending Provider at Discharge: Marco Guerrero FACOG Primary Care Provider: ROBERT Tobar Diagnoses at Discharge Discharge Diagnosis (1) Pre-eclampsia: Status: Acute (2) Mental disorder affecting : Status: Acute Qualifiers: Trimester: second trimester Qualified Code(s): O99.342 - Other mental disorders complicating , second trimester (3) Encounter for supervision of normal first : Status: Acute Qualifiers: Trimester: third trimester Qualified Code(s): Z34.03 - Encounter for supervision of normal first , third trimester (4) Rh negative status during : Status: Acute Qualifiers: Trimester: third trimester Qualified Code(s): O26.893 - Other specified related conditions, third trimester; Z67.91 - Unspecified blood type, Rh negative Reason for Visit Reason for Visit: Reason For Visit: Abdominal pain Hospital Course Discharge Summary: Date of delivery: November 07, 2019 Pre-delivery diagnoses: 18-year-old 1 para 0 at 38 weeks and 5 days Severe gestational hypertension which developed into severe preeclampsia prior to delivery-on magnesium Depression on citalopram Rh- status Post-delivery diagnoses: Vaginal delivery on 11/07/2019 Severe preeclampsia on magnesium Procedure: Vaginal delivery on 11/07/2019 Op report anesthesia: Epidural and Local Delivering Physician: Marco Guerrero Pre-Delivery Course: Ms. Alfonso is a 18-year-old 1 para 0 at 38 weeks and 5 days who presented to labor and delivery on 11/06/2019 with report of contractions. Contractions were sporadic however she was noted of elevated blood pressures in the 150s that progressed to the 160s. Lab work for preeclampsia was done and was negative with a protein creatinine ratio of 0.1. However given her elevated blood pressure she met criteria for gestational hypertension and was admitted for induction. She received her first dose of Cytotec at 4:45 PM on 11/06/2019. Her cervix was 1 cm, 50% and -2 station at that time. With this she was uncomfortable and made minimal cervical change to 2 cm 50% and -2 but was beatrice frequently. During this time her blood pressure would have severe elevations and she received IV labetalol which helped control this. An epidural was placed at midnight and after that she was relatively comfortable. She made no further cervical change however was beatrice every 1 to 2 minutes-too frequently for Cytotec. She was started on Pitocin at 2 AM titrated to a maximum of 6 mIU. With this she made some cervical change and at 7:30 AM was 3 to 4 cm, 80% and -2 station. She had artificial rupture of membranes with thick meconium at that time. She was extremely uncomfortable and felt a lot of pressure when attempt was made to make her comfortable with the epidural. During this time she had multiple severe elevations and repeat protein creatinine ratio was performed which is elevated at 0.48 and she was given the diagnosis of severe preeclampsia and started on magnesium sulfate for seizure prophylaxis. She was 6 cm at 1 PM and made rapid cervical change after this and was fully dilated at 2:15 PM and uncomfortable and ready to push. When she was fully dilated she was extremely uncomfortable and blood pressures were in the severe range Hospital course: She underwent an uncomplicated vaginal delivery on 11/07/2019. She received magnesium 24 hours as she had preeclampsia and diuresed well with largely normal blood pressures with occasional elevations. She had no preeclamptic symptoms. On day 1 magnesium was discontinued after 24 hours and she was ambulating well, tolerating regular diet, voiding freely, passing flatus. She was breast-feeding and bottlefeeding without difficulty and bonding well with her . Pain was well-controlled with by mouth pain medication. She denied nausea, vomiting, fever, chills, shortness of breath, leg pain. She had moderate vaginal bleeding. On day # 2 she continued to do well with stable vital signs and stable hemoglobin at 9.1. She was on ferrous sulfate already.. She was discharged home on day 2 in a stable condition. Warning signs for endometritis, mastitis, DVT/PE were reviewed with her. Post delivery activity restrictions were also reviewed with her at all her questions were answered to her satisfaction. Contraception to be discussed at her visit with Dr. Gabriel. She will have a 1 week blood pressure check and then a 6-week visit. Exam at discharge: Gen.: No acute distress Heart: S1-S2 heard, regular rate and rhythm Lungs: Clear to auscultation bilaterally Abdomen: Soft, fundus firm below umbilicus Legs: No calf tenderness, trace bilateral pitting pedal edema. Condition at discharge: Stable Physical Exam Urinary Catheter Management^: Cody: Cath Placed During This Visit: yes, but has since been removed by the nurse Reason for Continuing Indwelling Catheter: Decision to DC Catheter Urinary Catheter Date of Insertion: 11/07/19 Urinary Catheter Time of Insertion: 15:00 Date Urinary Catheter Removed: 11/08/19 Time Urinary Catheter Discontinued: 14:14 Discharge Data Data Completed and Pending: Labs from last 24 hours 11/08/19 11/06/19 11:32 14:45 Magnesium 7.1 Blood Type O Negative Rho(D) Type Negative Antibody Screen Positive Antibody Identific ation Anti-D Vitals: Last Vital Signs Temp 98.2 F 11/09/19 08:40 Pulse 90 11/09/19 08:40 Resp 18 11/09/19 08:40 BP 133/84 11/09/19 08:40 Pulse Ox 97 11/09/19 08:40 Discharge Plan Discharge Patient Disposition: Home, Self-Care Condition: Stable Prescriptions: New docusate sodium 100 mg Capsule 100 mg PO BID PRN (Reason: constipation) Qty: 30 RF: 0 ibuprofen 800 mg tablet 800 mg PO Q8H Qty: 30 RF: 0 ferrous sulfate 325 mg (65 mg iron) tablet 325 mg PO BID Qty: 30 RF: 0 Continued Gummies 400 mcg-35 mg- 25 mg-5 mg tablet,chewable 2 tab PO DAILY RF: 0 citalopram [Celexa] 40 mg tablet 40 mg PO QDAY RF: 0 Discharge Orders: Discharge Order (Routine); Ordered 11/09/19 Ordered By: Marco Boothe Referrals: Marco Boothe MD [Physician] - (1 week blood pressure check with Dr. Guerrero, 6-week exam with Dr. Gabriel) Activity Restrictions/Additional Instructions: No heavy lifting for 6 weeks, pelvic rest for 6 weeks. Preeclamptic symptoms reviewed. 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
[2019-11-09 12:50] VITALS: BP 131/84; PULSE 101; RESP 18; TEMP 36.8; O2SAT 97
== END 2019-11-09 13:34 | disposition home or self-care (01) | DRG 806 ==
LOC: OBGYN 14:11
PROVIDERS: Obstetrics & Gynecology; Admitting Provider Obstetrics & Gynecology; PCP Nurse Practitioner; Visit Provider Obstetrics & Gynecology
DX: O14.14 Severe pre-eclampsia complicating childbirth (principal); O36.0930 Maternal care for other rhesus isoimmunization, third trimester, not applicable or unspecified; Z37.0 Single live birth; Z3A.38 38 weeks gestation of pregnancy; O13.4 Gestational [pregnancy-induced] hypertension without significant proteinuria, complicating childbirth; O99.344 Other mental disorders complicating childbirth; F32.9 Major depressive disorder, single episode, unspecified; O69.2XX0 Labor and delivery complicated by other cord entanglement, with compression, not applicable or unspecified; O77.0 Labor and delivery complicated by meconium in amniotic fluid; O70.0 First degree perineal laceration during delivery
CPT/HCPCS: 12345; 36415; 36430; 51702; 59025; 59409; 80053; 81003; 82570; 83735; 84156; 84550; 85025; 85027; 85460; 86850; 86870; 86900; 90384; 96372; 96374; 96375; 99211; G0378; J2001; J2795; J3010; J3475; J3490

== ENCOUNTER 2019-11-29 19:01 | Emergency (ER) | payer MEDICAID, SELFPAY ==
[2019-11-29 19:15] VITALS: BP 158/83; PULSE 77; RESP 14; TEMP 36.9; O2SAT 97; BMI 32.4
--- NOTE | 2019-11-29 19:15 | ED_ITS ---
HPI - Headache General: Chief Complaint: Headache Stated Complaint: headache Time Seen by Provider: 11/29/19 19:11 Source: patient Mode of arrival: ambulatory Limitations: no limitations History of Present Illness: HPI Narrative: [age]-year-old female who gave little over 3 weeks ago and had preeclampsia. Patient states that she had a headache started roughly 5 days ago began gradually and is worsened. She states she had prior headaches throughout her to her migraine like. She states this headache is similar and is worse with bright lights and loud sounds. Improved in dark rooms. Denies this being the worst headache of her life denies any fever. MD elicited complaint: headache Onset (ago): day(s) Onset description: gradually Location: diffuse Severity: moderate Quality & Timing: aching Exacerbating factors: light Relieving factors: dark room Associated symptoms: Deny chest pain, fever(s), nausea, rash or vomiting Review of Systems Const: Denies: fever(s), chills, body aches or change in appetite Eyes: Denies: blurry vision or eye discomfort ENMT: Denies: throat pain or dental pain Card: Denies: chest pain Resp: Denies: dyspnea GI: Denies: abdominal pain, nausea, vomiting or diarrhea : Denies: dysuria Musc: Denies: neck pain or back pain Skin/Breast: Denies: rash Neuro: Reports: headache(s) Psych: Denies: depression Marshall/Lymph: Denies: easy bruising All/Imm: Denies: urticaria PFSH ED PFSH: Medical History Anxiety Surgical History S/P cholecystectomy (06/04/17) Laparoscopic. Diagnosis: Chronic cholecystitis. Performed by Dr. Pereyra [facility] in [place], [place]. S/P tonsillectomy under age 10 Family History Mother Heart disease CHF Hypertension Hyperlipidemia Thyroid condition Father Hypertension COPD (chronic obstructive pulmonary disease) Grandmother Hypertension maternal and paternal Hyperlipidemia maternal and paternal Grandfather Hypertension maternal and paternal Hyperlipidemia maternal and paternal Social History Smoking and tobacco status: never smoked Alcohol intake: never Physical Exam Const: COMMON NORMALS: no acute distress, patient oriented x3 and healthy appearing HENMT: COMMON NORMALS: normocephalic and atraumatic HEAD & SCALP: normocephalic and atraumatic Eye: COMMON NORMALS: Equal, round and reactive pupils present and EOMs intact bilaterally PUPIL: Yes Equal, round and reactive pupils present Neck/C-Spine: COMMON NORMALS: full ROM and supple Chest: COMMONS NORMALS: normal inspection of the chest and normal palpation of entire chest wall Resp: COMMON NORMALS: normal respiratory effort, No retractions, No use of accessory muscles and clear to auscultation bilaterally AUSCULTATION: clear to auscultation bilaterally Cardio: COMMON NORMALS: regular rate, regular rhythm and No murmurs present (C ardio) RATE: regular rate RHYTHM: regular rhythm GI: COMMON NORMALS: Normal to inspection, nondistended, normoactive bowel sounds present, Soft to palpation, non-tender and no masses PALPATION: Yes Soft to palpation Extremity: COMMON NORMALS: normal to inspection and full ROM Neuro: COMMON NORMALS: patient oriented x3, moves all extremities and no focal motor deficits Psych: COMMON NORMALS: mental status grossly normal, Normal thought process present and cooperative THOUGHT PROCESS: Normal thought process present Skin: COMMON NORMALS: no rashes or lesions noted and no wounds GENERAL SKIN EXAM: no rashes or lesions noted Course Vital Signs: Vital signs: Vital Signs Temperature 98.5 F 11/29/19 19:15 Pulse Rate 81 11/29/19 20:03 Respiratory Rate 14 11/29/19 20:03 Blood Pressure 142/83 11/29/19 20:03 Pulse Oximetry 99 11/29/19 20:03 MDM - Headache MDM Narrative: Medical decision making narrative: Patient presents here with headache that is likely a migraine headache. Patient feels much improved here after Reglan and Benadryl. She did have a reaction to the Reglan was given Ativan and is improved. She has no signs of meningitis or subarachnoid hemorrhage. She is to follow-up with her primary care doctor in 3 to 5 days return if worsening. Discharge Plan Discharge Patient Disposition: Home, Self-Care Clinical Impression: Headache Qualifiers: Headache type: unspecified Headache chronicity pattern: unspecified pattern Intractability: not intractable Qualified Code(s): R51 - Headache Condition: Stable Prescriptions: No Action citalopram [Celexa] 40 mg tablet 40 mg PO DAILY RF: 0 ibuprofen 800 mg tablet 800 mg PO Q8H PRN (Reason: pain) RF: 0 docusate sodium 100 mg Capsule 100 mg PO BID PRN (Reason: constipation) Qty: 30 RF: 0 Discharge Orders: Discharge Order (Routine); Ordered 11/29/19 Ordered By: Nabeel Guajardo Referrals: Cecilia Aguilar, COMMERCIAL LENDER-C [Primary Care Provider] - 1-3 days Discharge Diet: Advance as tolerated Discharge Activity: Resume usual activity Patient Instructions: Acute Headache (ED) Coding Level of Care Code ED Data Analyst Etl Developer for Edwing Fwd Exam Comprehensive
[2019-11-29] MEDS: sodium chloride 0.9% 1,000 ML 999 ML IV (19:38)
[2019-11-29] MEDS: diphenhydrAMINE 50 mg/mL SDV 1mL IVP (19:38)
[2019-11-29] MEDS: metoclopramide 5 mg/mL SDV 2 mL 10 MG IVP (19:38)
[2019-11-29] MEDS: LORazepam 2 mg/mL INJ 1 mL 1 MG IVP (20:00)
[2019-11-29 20:03] VITALS: BP 142/83; PULSE 81; RESP 14; O2SAT 99
[2019-11-29 20:55] VITALS: BP 120/46; PULSE 77; RESP 14; O2SAT 98
== END 2019-11-29 20:56 | disposition home or self-care (01) ==
PROVIDERS: Emergency Provider Emergency Medicine; PCP Nurse Practitioner
DX: R51 Headache (principal)
CPT/HCPCS: 12345; 96361; 96374; 96375; 99282; 99283; J1200; J2060; J2765; J7030

== ENCOUNTER → 2019-12-04 14:40 | Outpatient (BNVA) | payer MEDICAID, SELFPAY | PROVIDERS: PCP Nurse Practitioner; Visit Provider Nurse Practitioner Family | DX: G43.909 Migraine, unspecified, not intractable, without status migrainosus (principal); B35.9 Dermatophytosis, unspecified | CPT/HCPCS: 80053; 83735; 84443; 85025 ==

== ENCOUNTER → 2019-12-21 14:40 | Outpatient (BNVA) | payer MEDICAID, SELFPAY | PROVIDERS: PCP Nurse Practitioner; Visit Provider Obstetrics & Gynecology | DX: Z12.4 Encounter for screening for malignant neoplasm of cervix (principal) | CPT/HCPCS: 88175 ==

== ENCOUNTER 2020-01-01 09:54 | Outpatient (CLI) | payer MEDICAID, SELFPAY ==
--- NOTE | 2020-01-01 10:15 | CT_ITS ---
WS: [id number] CT HEAD TECHNIQUE: Noncontrast CT of the head obtained from the skullbase to the vertex. CLINICAL INFORMATION: more frequent migraines COMPARISON: October 12, 2014 DLP: 925.[address] scans at [facility] use at least one of these dose optimization techniques: automat ed exposure control; mA and/or kV adjustment per patient size (includes targeted exams where dose is matched to clinical indication); or iterative reconstruction. FINDINGS: No evidence of intracranial hemorrhage or mass effect. Ventricular system and basal cisterns are sullivan nt. No extra-axial fluid collections. No evidence of mass or mass effect. Normal kennedy-white different iation. Paranasal sinuses and mastoid air cells are well aerated. .Normal visualized soft tissues. CT/CT head wo con* [id number] IMPRESSION: 1. No evidence of intracranial hemorrhage or mass effect. 2. Normal kennedy-white differentiation. 3. No acute intracranial findings.
== END 2020-01-01 09:55 | disposition home or self-care (01) ==
LOC: RADWPI 09:57
PROVIDERS: Family Provider Nurse Practitioner; PCP Nurse Practitioner; Visit Provider Nurse Practitioner Family
DX: G43.909 Migraine, unspecified, not intractable, without status migrainosus (principal)
CPT/HCPCS: 70450

== ENCOUNTER → 2020-03-04 14:40 | Outpatient (BNVA) | payer MEDICAID, SELFPAY | PROVIDERS: Family Provider Nurse Practitioner; PCP Nurse Practitioner; Visit Provider Nurse Practitioner Family | DX: Z11.59 Encounter for screening for other viral diseases (principal); J02.9 Acute pharyngitis, unspecified | CPT/HCPCS: 87071; 87635; 87880 ==

== ENCOUNTER → 2020-05-31 12:52 | Outpatient (BNVA) | payer MEDICAID, SELFPAY | PROVIDERS: Family Provider Nurse Practitioner; PCP Nurse Practitioner; Visit Provider Nurse Practitioner | DX: M25.562 Pain in left knee (principal) | CPT/HCPCS: 73562 ==

== ENCOUNTER 2020-09-04 06:00 | Outpatient (CLI) | payer BC, MEDICAID, SELFPAY | END 2020-09-04 06:01 | disposition home or self-care (01) | LOC: LAB 08-14 10:29 | PROVIDERS: PCP Nurse Practitioner Family; Visit Provider Nurse Practitioner Family | DX: R10.30 Lower abdominal pain, unspecified (principal); K92.1 Melena | CPT/HCPCS: 80053; 81000; 85025 ==

== ENCOUNTER → 2021-01-02 09:31 | Outpatient (BNVA) | payer BC, SELFPAY | PROVIDERS: Family Provider Nurse Practitioner; PCP Nurse Practitioner; Visit Provider Nurse Practitioner Family | DX: R39.9 Unspecified symptoms and signs involving the genitourinary system (principal); N92.6 Irregular menstruation, unspecified; N39.0 Urinary tract infection, site not specified | CPT/HCPCS: 81000; 81025; 87086 ==

== ENCOUNTER 2021-01-08 13:36 | Emergency (ER) | payer BC, MEDICAID, SELFPAY ==
[2021-01-08 14:11] VITALS: BP 126/76; PULSE 93; RESP 18; TEMP 37.5; O2SAT 98; BMI 31.8
[2021-01-08 16:25] LABS: Basophils % 0.1 %; Eosinophils % 0.1 %; Hematocrit 44.8 % (37.0-47.0); Hemoglobin 15.1 g/dL (11.5-15.3); Lymphocytes # 0.8 10^3/uL (0.8-4.8); Lymphocytes % 8.8 %; Mean Corpuscular HGB Conc 33.7 g/dL (30.0-36.0); Mean Corpuscular Hemoglobin 29.2 pg (28.0-34.0); Mean Corpuscular Volume 86.5 fL (81-99); Mean Platelet Volume 10.3 fL (7.4-10.4); Monocytes # 0.6 10^3/uL (0.2-0.9); Monocytes % 6.3 %; Neutrophils # 7.39 10^3/uL (1.8-7.7); Neutrophils % 84.4 %; Nucleated Red Blood Cells % 0 %; Platelet Count 256 10^3/cmm (130-400); Red Blood Count 5.18 10^6/uL (4.1-5.3); Red Cell Distribution Width 12.5 % (12.1-15.1); White Blood Count 8.8 10^3/uL (4.0-10.0)
[2021-01-08 16:54] LABS: HCG, Serum Qual Negative (Negative)
[2021-01-08 17:01] LABS: Alanine Aminotransferase 20 U/L (0-33); Albumin Level 4.4 g/dL (3.5-5.2); Alkaline Phosphatase 73 IU/L (35-105); Anion Gap 14.8 (5-19); Aspartate Amino Transferase 22 U/L (0-32); Blood Urea Nitrogen 8 mg/dL (6-20); Calcium 8.6 mg/dL (8.5-10.5); Carbon Dioxide 24 mmol/L (22-29); Chloride 102 mmol/L (98-107); Globulin 2.8 g/dL (1.3-4.6); Glucose 88 mg/dL (65-115); Lipase 21 U/L (13-60); Osmolality Calculated 282 mOsm/kg (285-295); Potassium 3.8 mmol/L (3.5-5.1); Sodium 137 mmol/L (136-145); Total Bilirubin 0.5 mg/dL (0.15-1.2); Total Protein 7.2 g/dL (6.6-8.7)
[2021-01-08 18:26] LABS: Add Urine Microscopic? YES; Bilirubin Urine Neg (Negative); Blood Urine Neg (Negative); Glucose Urine UA Norm (Normal); Ketones Urine 1+ (Negative); Leukocyte Esterase Urine Trace (Negative); Nitrate Urine Negative (Negative); Protein Urine Neg (Negative); Urine Appearance Clear (CLEAR); Urine Color Yellow (Yellow); Urobilinogen Urine 4 mg/dL (Negative); pH Urine 5 (5-7)
--- NOTE | 2021-01-08 18:33 | CTR_ITS ---
PROCEDURE INFORMATION: Exam: CT Abdomen And Pelvis With Contrast Exam date and time: 01/08/2021 6:33 PM Age: 20 years old Clinical indication: Nausea and vomiting; Abdominal pain; Localized; Upper; Prior surgery; Surgery type: Gb; Additional info: Abd pain/burning TECHNIQUE: Imaging protocol: Computed tomography of the abdomen and pelvis with contrast. Radiation optimization: All CT scans at this facility use at least one of these dose optimization techniques: automated exposure control; mA and/or kV adjustment per patient size (includes targeted exams where dose is matched to clinical indication); or iterative reconstruction. Contrast material: OMNI 300; Contrast volume: 95 ml; Contrast route: INTRAVENOUS (IV); COMPARISON: CT Abdomen/Pelvis Renal [id number] 08/02/2018 2:17 PM RADIATION DOSE METRICS: Total DLP (mGy-cm): 1715.25 FINDINGS: Liver: Normal. No mass. Gallbladder and bile ducts: Cholecystectomy. The bile ducts are normal. Pancreas: Normal. No ductal dilation. Spleen: Normal. No splenomegaly. Adrenal glands: Normal. No mass. Kidneys and ureters: Small hypodensities in both kidneys are too small to characterize but are most likely cysts. No follow-up imaging is recommended. No calculus or hydronephrosis. Stomach and bowel: Mild wall enhancement of the mid and distal small bowel which contains fluid. No dilatation or obstruction. The stomach and colon are unremarkable. Appendix: The appendix is visualized and is normal. Intraperitoneal space: Trace physiologic fluid in the pelvis. No free air. Vasculature: Unremarkable. No abdominal aortic aneurysm. Lymph nodes: Multiple prominent mesenteric lymph nodes are most likely reactive. Urinary bladder: Unremarkable as visualized. Reproductive: Unremarkable as visualized. Bones/joints: Unremarkable. No acute fracture. Soft tissues: Unremarkable. CT/CT abdomen pelvis w con* [id number] IMPRESSION: 1. Mild wall enhancement within the mid and distal small bowel could represent mild enteritis. 2. Mesenteric adenitis. COMMENTS: Consistent with the [employer]'s Incidental Findings Committee white paper (J Am Nadia Radiol 2018): Any incidental renal lesion less than 1 cm or classified as too small to characterize, or any incidental cystic renal lesion characterized as simple-appearing, is likely benign. No follow-up imaging is recommended for these lesions per consensus recommendations based on imaging criteria. Radiation Dose CTDIVOL = (mGy): DLP = 1715.25 (mGy-cm)
--- NOTE | 2021-01-08 18:35 | W.ED.ABDPA2 ---
HPI - Abdominal Pain General: Chief Complaint: Abdominal Pain Stated Complaint: ABD PAIN Time Seen by Provider: 01/08/21 18:27 Source: patient Mode of arrival: ambulatory Limitations: no limitations History of Present Illness: HPI narrative: 20-year-old female who states that over the last 2 to 3 days she been having severe epigastric right upper quadrant right lower quadrant pain. States she is 2 days late for her period and is worried that she could be . States she also had a history of ovarian cyst. She had nausea. States her pain is currently an 8 out of 10. Denies any worsening improving factors. Denies any diarrhea. Denies any fevers. She has had a cholecystectomy in the past Associated Symptoms: Reports nausea and vomiting; Denies chills, dysuria and fever(s) Review of Systems Const: Denies: fever(s), chills, body aches or change in appetite Eyes: Denies: blurry vision or eye discomfort ENMT: Denies: throat pain or dental pain Card: Denies: chest pain Resp: Denies: dyspnea GI: Reports: abdominal pain, nausea and vomiting : Denies: dysuria Musc: Denies: neck pain or back pain Skin/Breast: Denies: rash Neuro: Denies: headache(s) Psych: Denies: depression Marshall/Lymph: Denies: easy bruising All/Imm: Denies: urticaria PFSH ED PFSH: Medical History (Updated 01/08/21 @ 19:44 by Nabeel Guajardo MD) Anxiety Blood type O- History of pre-eclampsia Had preeclampsia with first . Surgical History S/P cholecystectomy (06/04/17) Laparoscopic. Diagnosis: Chronic cholecystitis. Performed by Dr. Pereyra [facility] in [place], [place]. S/P tonsillectomy under age 10 Family History Mother Heart disease CHF Hypertension Hyperlipidemia Thyroid condition Father Hypertension COPD (chronic obstructive pulmonary disease) Grandmother Hypertension maternal and paternal Hyperlipidemia maternal and paternal Grandfather Hypertension maternal and paternal Hyperlipidemia maternal and paternal Social History Smoking and tobacco status: never smoked Alcohol intake: never Physical Exam Const: COMMON NORMALS: no acute distress, patient oriented x3 and healthy appearing HENMT: COMMON NORMALS: normocephalic and atraumatic HEAD & SCALP: normocephalic and atraumatic Eye: COMMON NORMALS: Equal, round and reactive pupils present and EOMs intact bilaterally PUPIL: Yes Equal, round and reactive pupils present Neck/C-Spine: COMMON NORMALS: full ROM and supple Chest: COMMONS NORMALS: normal inspection of the chest and normal palpation of entire chest wall Resp: COMMON NORMALS: normal respiratory effort, No retractions, No use of accessory muscles and clear to auscultation bilaterally AUSCULTATION: clear to auscultation bilaterally Cardio: COMMON NORMALS: regular rate, regular rhythm and No murmurs present (Cardio) RATE: regular rate RHYTHM: regular rhythm GI: COMMON NORMALS: Normal to inspection, nondistended, normoactive bowel sounds present, Soft to palpation, non-tender and no masses PALPATION: Yes Soft to palpation Extremity: COMMON NORMALS: normal to inspection and full ROM Neuro: COMMON NORMALS: patient oriented x3, moves all extremities and no focal motor deficits Psych: COMMON NORMALS: mental status grossly normal, Normal thought process present and cooperative THOUGHT PROCESS: Normal thought process present Skin: COMMON NORMALS: no rashes or lesions noted and no wounds GENERAL SKIN EXAM: no rashes or lesions noted Course Vital Signs: Vital signs: Vital Signs Temperature 99.5 F 01/08/21 14:11 Pulse Rate 77 01/08/21 19:36 Respiratory Rate 18 01/08/21 19:36 Blood Pressure 132/77 01/08/21 19:36 Pulse Oximetry 100 01/08/21 19:36 MDM - Abdominal Pain MDM Narrative: Medical decision making narrative: Patient presents with abdominal pain. CT does show mesenteric adenitis likely causing her pain. Patient's blood work here is normal UA is normal as well. She is stable for discharge is to follow-up PCP and return if worsening. Lab Data: Labs: Lab Results 01/08/21 01/08/21 01/08/21 Range/Units 16:10 16:10 16:10 WBC 8.8 (4.0-10.0) 10^3/ uL RBC 5.18 (4.1-5.3) 10^6/u L Hgb 15.1 (11.5-15.3) g/dL Hct 44.8 (37.0-47.0) % MCV 86.5 (81-99) fL MCH 29.2 (28.0-34.0) pg MCHC 33.7 (30.0-36.0) g/dL RDW 12.5 (12.1-15.1) % Plt Count 256 (130-400) 10^3/c mm MPV 10.3 (7.4-10.4) fL Neut % (Auto) 84.4 % Lymph % (Auto) 8.8 % [place] % (Auto) 6.3 % Eos % (Auto) 0.1 % Baso % (Auto) 0.1 % Neut # (Auto) 7.39 (1.8-7.7) 10^3/u L Lymph # (Auto) 0.8 (0.8-4.8) 10^3/u L [place] # (Auto) 0.6 (0.2-0.9) 10^3/u L Eos # (Auto) 0.0 (0.0-0.8) 10^3/u L Baso # (Auto) 0.0 (0.0-0.1) 10^3/u L Nucleated RBC % (a uto) 0 % Nucleated RBCs # 0.0 /100WBC Sodium 137 (136-145) mmol/L Potassium 3.8 (3.5-5.1) mmol/L Chloride 102 (98-107) mmol/L Carbon Dioxide 24 (22-29) mmol/L Anion Gap 14.8 (5-19) BUN 8 (6-20) mg/dL Creatinine 0.6 (0.5-0.9) mg/dL GFR Calculation 125.0 (90-130) mL/min Glucose 88 (65-115) mg/dL Calculated Osmolal ity 282 L (285-295) mOsm/k g Calcium 8.6 (8.5-10.5) mg/dL Total Bilirubin 0.5 (0.15-1.2) mg/dL AST 22 (0-32) U/L ALT 20 (0-33) U/L Alkaline Phosphata se 73 (35-105) IU/L Total Protein 7.2 (6.6-8.7) g/dL Albumin 4.4 (3.5-5.2) g/dL Globulin 2.8 (1.3-4.6) g/dL Lipase 21 (13-60) U/L HCG, Qual Negative (Negative) Urine Color (Yellow) Urine Appearance (CLEAR) Urine pH (5-7) Ur Specific Gravit y (1.005-1.030) Urine Protein (Negative) Urine Glucose (UA) (Normal) Urine Ketones (Negative) Urine Blood (Negative) Urine Nitrate (Negative) Urine Bilirubin (Negative) Urine Urobilinogen (Negative) mg/dL Ur Leukocyte Pastora ase (Negative) Urine RBC (0-2) /hpf Urine WBC (0-5) /hpf Ur Squamous Epith Cells (0-5) /hpf Amorphous Sediment Urine Bacteria (NONE) /hpf 01/08/21 Range/Units 17:58 WBC (4.0-10.0) 10^3/ uL RBC (4.1-5.3) 10^6/u L Hgb (11.5-15.3) g/dL Hct (37.0-47.0) % MCV (81-99) fL MCH (28.0-34.0) pg MCHC (30.0-36.0) g/dL RDW (12.1-15.1) % Plt Count (130-400) 10^3/c mm MPV (7.4-10.4) fL Neut % (Auto) % Lymph % (Auto) % [place] % (Auto) % Eos % (Auto) % Baso % (Auto) % Neut # (Auto) (1.8-7.7) 10^3/u L Lymph # (Auto) (0.8-4.8) 10^3/u L [place] # (Auto) (0.2-0.9) 10^3/u L Eos # (Auto) (0.0-0.8) 10^3/u L Baso # (Auto) (0.0-0.1) 10^3/u L Nucleated RBC % (a uto) % Nucleated RBCs # /100WBC Sodium (136-145) mmol/L Potassium (3.5-5.1) mmol/L Chloride (98-107) mmol/L Carbon Dioxide (22-29) mmol/L Anion Gap (5-19) BUN (6-20) mg/dL Creatinine (0.5-0.9) mg/dL GFR Calculation (90-130) mL/min Glucose (65-115) mg/dL Calculated Osmolal ity (285-295) mOsm/k g Calcium (8.5-10.5) mg/dL Total Bilirubin (0.15-1.2) mg/dL AST (0-32) U/L ALT (0-33) U/L Alkaline Phosphata se (35-105) IU/L Total Protein (6.6-8.7) g/dL Albumin (3.5-5.2) g/dL Globulin (1.3-4.6) g/dL Lipase (13-60) U/L HCG, Qual (Negative) Urine Color Yellow (Yellow) Urine Appearance Clear (CLEAR) Urine pH 5 (5-7) Ur Specific Gravit y 1.020 (1.005-1.030) Urine Protein Neg (Negative) Urine Glucose (UA) Norm (Normal) Urine Ketones 1+ H (Negative) Urine Blood Neg (Negative) Urine Nitrate Negative (Negative) Urine Bilirubin Neg (Negative) Urine Urobilinogen 4 H (Negative) mg/dL Ur Leukocyte Pastora ase Trace H (Negative) Urine RBC None (0-2) /hpf Urine WBC 0-4 H (0-5) /hpf Ur Squamous Epith Cells 0-4 H (0-5) /hpf Amorphous Sediment Not Reportable Urine Bacteria None (NONE) /hpf Imaging Data ^: CT Abd/Pel: Radiologist's impression: [address] [place] [id number] Scan Report Signed Patient: Ayla AlfonsoJanet Yael Unit #: [id number] 3 : 2000 Age/Sex: 20 / F ADM Date: 01/08/21 Loc: ER Room/Bed: Attending Dr: Ordering Provider/Ordering MD: Nabeel Guajardo MD Date of Service: 01/08/21 Procedure(s): CT abdomen pelvis w con* [id number] Accession Number(s): [id number] Report Number: [id number] PROCEDURE INFORMATION: Exam: CT Abdomen And Pelvis With Contrast Exam date and time: 01/08/2021 6:33 PM Age: 20 years old Clinical indication: Nausea and vomiting; Abdominal pain; Localized; Upper; Prior surgery; Surgery type: Gb; Additional info: Abd pain/burning TECHNIQUE: Imaging protocol: Computed tomography of the abdomen and pelvis with contrast. Radiation optimization: All CT scans at this facility use at least one of these dose optimization techniques: automated exposure control; mA and/or kV adjustment per patient size (includes targeted exams where dose is matched to clinical indication); or iterative reconstruction. Contrast material: OMNI 300; Contrast volume: 95 ml; Contrast route: INTRAVENOUS (IV); COMPARISON: CT Abdomen/Pelvis Renal [id number] 08/02/2018 2:17 PM RADIATION DOSE METRICS: Total DLP (mGy-cm): 1715.25 FINDINGS: Liver: Normal. No mass. Gallbladder and bile ducts: Cholecystectomy. The bile ducts are normal. Pancreas: Normal. No ductal dilation. Spleen: Normal. No splenomegaly. Adrenal glands: Normal. No mass. Kidneys and ureters: Small hypodensities in both kidneys are too small to characterize but are most likely cysts. No follow-up imaging is recommended. No calculus or hydronephrosis. Stomach and bowel: Mild wall enhancement of the mid and distal small bowel which contains fluid. No dilatation or obstruction. The stomach and colon are unremarkable. Appendix: The appendix is visualized and is normal. Intraperitoneal space: Trace physiologic fluid in the pelvis. No free air. Vasculature: Unremarkable. No abdominal aortic aneurysm. Lymph nodes: Multiple prominent mesenteric lymph nodes are most likely reactive. Urinary bladder: Unremarkable as visualized. Reproductive: Unremarkable as visualized. Bones/joints: Unremarkable. No acute fracture. Soft tissues: Unremarkable. CT/CT abdomen pelvis w con* [id number] IMPRESSION: 1. Mild wall enhancement within the mid and distal small bowel could represent mild enteritis. 2. Mesenteric adenitis. COMMENTS: Consistent with the [employer]'s Incidental Findings Committee white paper (J Am Nadia Radiol 2018): Any incidental renal lesion less than 1 cm or classified as too small to characterize, or any incidental cystic renal lesion characterized as simple-appearing, is likely benign. No follow-up imaging is recommended for these lesions per consensus recommendations based on imaging criteria. Radiation Dose CTDIVOL = (mGy): DLP = 1715.25 (mGy-cm) Dictated By: José Miguel Bowden Signed By: José Miguel Bowden Signed Date/Time: 01/08/211938 DD/ 37 Discharge Plan Discharge Patient Disposition: Home Clinical Impression: Abdominal pain Condition: Stable Prescriptions: New hydrocodone-acetaminophen 5-325 mg tablet 1 tab PO Q6H PRN (Reason: pain) Qty: 14 RF: 0 ondansetron 4 mg tablet,disintegrating 4 mg PO Q6H PRN (Reason: nausea and vomiting) Qty: 14 RF: 0 Discharge Orders: Discharge ED (Routine); Ordered 01/08/21 Ordered By: Nabeel Guajardo Referrals: Cecilia Aguilar CIRCULAR RIPSAW OPERATOR-C [Primary Care Provider] - 1-3 days Discharge Diet: Advance as tolerated Discharge Activity: Resume usual activity Patient Instructions: Abdominal Pain (ED), Opioid Safety Coding Level of Care Code ED Assistant Superintendent for Edwing Fwd Exam Comprehensive
[2021-01-08] MEDS: iohexol 300 mg/mL 100 mL Btl IV (19:03)
[2021-01-08 19:23] LABS: Squamous Epithelial Cell Urine 0-4 /hpf (0-5); WBC Urine 0-4 /hpf (0-5)
[2021-01-08 19:36] VITALS: BP 132/77; PULSE 77; RESP 18; O2SAT 100
[2021-01-08] MEDS: ondansetron 2 mg/ML SDV 2 mL 4 MG IVP (19:42)
[2021-01-08] MEDS: sodium chloride 0.9% 1,000 ML 999 ML IV (19:43)
--- NOTE | 2021-01-08 19:45 | PC.NURSE ---
Patient refused pain medication physician ordered, as she has to drive herself home once she is discharged. Discussed with patient she should not take hydromorphone and then drive herself home. Patient couldn't think of another person who could drive her home. Patient acknowledged understanding, and decided not to take the medication.
[2021-01-08] MEDS: dicyclomine 10 mg Capsule 20 MG PO (20:43)
[2021-01-08 20:44] VITALS: BP 126/90; PULSE 101; RESP 18; O2SAT 100
== END 2021-01-08 21:26 | disposition home or self-care (01) ==
PROVIDERS: Physician Assistant; Emergency Provider Emergency Medicine; PCP Nurse Practitioner
DX: I88.0 Nonspecific mesenteric lymphadenitis (principal)
CPT/HCPCS: 36415; 74177; 80053; 81001; 83690; 84703; 85025; 96361; 96374; 99284; J2405; J7030; Q9967

== ENCOUNTER → 2021-05-02 13:15 | Outpatient (BNVA) | payer BC, MEDICAID, SELFPAY | PROVIDERS: PCP Nurse Practitioner; Visit Provider Nurse Practitioner Family | DX: R11.0 Nausea (principal); R19.7 Diarrhea, unspecified; K21.9 Gastro-esophageal reflux disease without esophagitis | CPT/HCPCS: 80053; 83630; 87338; 87506 ==

== ENCOUNTER → 2021-07-06 16:12 | Outpatient (BNVA) | payer BC, MEDICAID, SELFPAY | PROVIDERS: Visit Provider Family Medicine | DX: N39.0 Urinary tract infection, site not specified (principal) | CPT/HCPCS: 81000 ==

== ENCOUNTER 2021-07-08 16:53 | Emergency (ER) | payer BC, MEDICAID, SELFPAY ==
[2021-07-08 17:30] VITALS: BP 105/70; PULSE 79; RESP 16; TEMP 36.9; O2SAT 99; BMI 32.8
--- NOTE | 2021-07-08 17:48 | XRR_ITS ---
PROCEDURE INFORMATION: Exam: XR Left Tibia and Fibula Exam date and time: 07/08/2021 5:48 PM Age: 20 years old Clinical indication: Pain; Lower leg; Left; Additional info: Injury TECHNIQUE: Imaging protocol: XR Left tibia and fibula. Views: 2 views. COMPARISON: No relevant prior studies available. FINDINGS: Bones/joints: Normal. Soft tissues: Normal. XR/XR tibia fibula LT 2V [id number] IMPRESSION: No acute findings.
--- NOTE | 2021-07-08 17:48 | XRR_ITS ---
PROCEDURE INFORMATION: Exam: XR Left Foot Exam date and time: 07/08/2021 5:48 PM Age: 20 years old Clinical indication: Pain; Foot; Left; Additional info: Injury TECHNIQUE: Imaging protocol: XR Left foot. Views: 3 or more views. COMPARISON: No relevant prior studies available. FINDINGS: Bones/joints: Normal. Soft tissues: Normal. XR/XR foot LT min 3V* [id number] IMPRESSION: No acute findings.
--- NOTE | 2021-07-08 17:49 | ED_ITS ---
HPI - Extremity Problem General: Chief complaint: Extremity Injury, Lower Stated complaint: left foot injury Time Seen by Provider: 07/08/21 17:48 History of Present Illness: HPI Narrative: 21-year-old female comes in today after injuring her left foot and lower leg. Patient states that she was at the chiropractor's office and had went to step around her when she missed the step causing her to injure her left foot by turning it. Patient reports lateral foot pain and discomfort. Patient appears well. Patient appears in no pain at rest. Review of Systems Musc: Reports: extremity pain (Left foot pain) [facility] ED PFS: Medical History (Updated 07/08/21 @ 19:21 by SENDY Keys) Anxiety Blood type O- History of pre-eclampsia Had preeclampsia with first . Surgical History S/P cholecystectomy (06/04/17) Laparoscopic. Diagnosis: Chronic cholecystitis. Performed by Dr. Pereyra [facility] in [place], [place]. S/P tonsillectomy under age 10 Family History Mother Heart disease CHF Hypertension Hyperlipidemia Thyroid condition Father Hypertension COPD (chronic obstructive pulmonary disease) Grandmother Hypertension maternal and paternal Hyperlipidemia maternal and paternal Grandfather Hypertension maternal and paternal Hyperlipidemia maternal and paternal Social History Smoking and tobacco status: never smoked Alcohol intake: never Physical Exam Const: COMMON NORMALS: patient oriented x3 Neck/C-Spine: COMMON NORMALS: full ROM Resp: COMMON NORMALS: normal respiratory effort Extremity: LEFT LOWER EXTREMITY: Yes lower leg Left lower leg: Yes inspection (Normal) and Yes palpation (Tenderness to palpation of the lower lateral leg), Yes ankle joint Left ankle: Yes inspection (Normal) and Yes palpation (Nontender) and Yes foot & digits (Minimal swelling lateral foot) Left foot and digits: Yes inspection, Yes palpation (Tenderness to palpation base of fifth metatarsal), Yes neurovascular exam and Yes tendon exam Neuro: COMMON NORMALS: patient oriented x3 Psych: COMMON NORMALS: cooperative Skin: COMMON NORMALS: no rashes or lesions noted GENERAL SKIN EXAM: no rashes or lesions noted Course Vital Signs: Vital signs: Vital Signs Temperature 98.5 F 07/08/21 17:30 Pulse Rate 79 07/08/21 17:30 Respiratory Rate 16 07/08/21 17:30 Blood Pressure 105/70 07/08/21 17:30 Pulse Oximetry 99 07/08/21 17:30 MDM - Extremity (Nontraumatic) MDM Narrative Medical decision making narrative: Patient comes in for injury to the left lateral foot and lower leg. Patient reported this afternoon stepping off a ramp and injuring her left foot. On exam patient has tenderness at the base of the fifth metatarsal. Minimal swelling is noted to the foot. No obvious deformity is noted. Patient does have some tenderness to the left lateral lower leg. Differential diagnosis includes fracture, sprain, contusion. X-rays of the foot and ankle were negative for any fracture. Reviewed exam with patient recommendations for treatment including crutches and elastic bandage. Patient reported understanding of care plan and need for follow-up or return to the ER. Lab Data Labs: Radiology Impressions Foot X-Ray 07/08/21 17:48 IMPRESSION: No acute findings. Tibia/Fibula X-Ray 07/08/21 17:48 IMPRESSION: No acute findings. Discharge Plan Discharge Patient Disposition: Home Clinical Impression: Sprain of foot, left Condition: Stable Prescriptions: No Action citalopram [Celexa] 20 mg tablet 20 mg PO DAILY 30 Days Qty: 30 5RF ondansetron HCl [Zofran] 4 mg tablet 4 mg PO Q8H PRN (Reason: nausea and vomiting) 10 Days Qty: 30 0RF loperamide [Imodium A-D] 2 mg tablet 2 mg PO Q6H PRN (Reason: loose stool) 10 Days Qty: 30 3RF pantoprazole [Protonix] 40 mg tablet,delayed release (DR/EC) 40 mg PO DAILY 30 Days Qty: 30 3RF fluconazole [Diflucan] 150 mg tablet 150 mg PO ONCE 1 Days Qty: 1 0RF cephalexin 250 mg capsule 250 mg PO BID 5 Days Qty: 10 0RF Rx Instructions: start in 48 hours if symptoms persists Discharge Orders: Discharge ED (Routine); Ordered 07/08/21 Ordered By: Gordo Jackson Discharge Diet: Usual diet Discharge Activity: Increase activity as tolerated Patient Instructions: Sprain (ED) Activity Restrictions/Additional Instructions: Activity as tolerated. Use crutches until he can bear weight comfortably. Use a elastic bandage for comfort and support. I would expect you to increase activity on the extremity over the next 3 to 5 days. Follow-up with primary care in 1 week for no improvement. Return to the ER for new concerns. Coding Level of Care Code ED Band Lining Bander for Maritza Fwvinay History Problem Focused Medical Decision Making Straight Forward Time Spent (min) 20
== END 2021-07-08 19:34 | disposition home or self-care (01) ==
PROVIDERS: Emergency Provider Nurse Practitioner Family
DX: S99.922A Unspecified injury of left foot, initial encounter (principal); S93.602A Unspecified sprain of left foot, initial encounter; X50.1XXA Overexertion from prolonged static or awkward postures, initial encounter
CPT/HCPCS: 73590; 73630; 99283; E0114

== ENCOUNTER → 2022-01-31 10:52 | Outpatient (BNVA) | payer BC, MEDICAID, SELFPAY | PROVIDERS: PCP Nurse Practitioner Family; Visit Provider Registered Nurse Neonatal Intensive Care | DX: R30.0 Dysuria (principal); N30.00 Acute cystitis without hematuria | CPT/HCPCS: 81000 ==

== ENCOUNTER → 2022-04-15 15:50 | Outpatient (BNVA) | payer BC, SELFPAY | PROVIDERS: PCP Nurse Practitioner Family; Visit Provider Nurse Practitioner Women's Health | DX: N92.0 Excessive and frequent menstruation with regular cycle (principal); R10.2 Pelvic and perineal pain | CPT/HCPCS: 84443; 84702; 85025; 87491; 87591; 87661 ==

== ENCOUNTER → 2022-06-09 17:59 | Outpatient (BNVA) | payer BC, MEDICAID, SELFPAY | PROVIDERS: PCP Nurse Practitioner Family; Visit Provider Family Medicine | DX: R53.83 Other fatigue (principal) | CPT/HCPCS: 80053; 82306; 82607; 83540; 84443; 85025 ==

== ENCOUNTER 2022-06-16 08:33 | Emergency (ER) | payer BC, MEDICAID, SELFPAY ==
--- NOTE | 2022-06-16 08:36 | XR_ITS ---
WS: [id number], AP view, 06/16/2022 Clinical Data: constipation Comparison: KUB, 08/02/2018. Findings: No abnormal intraabdominal masses or calcifications are seen. There is no dilatated small bowel or ev idence of obstruction. There is a large amount of fecal material throughout the colon. The bladder is full. XR/XR KUB portable [id number] Impression: Large amount of fecal material in the colon.
[2022-06-16 09:02] VITALS: BP 124/94; PULSE 83; RESP 16; TEMP 36.4; O2SAT 98
[2022-06-16 09:04] VITALS: RESP 16; O2SAT 98
--- NOTE | 2022-06-16 09:04 | ED_ITS ---
HPI - Abdominal Pain General: Chief Complaint: Abdominal Pain Stated Complaint: no bm 11xdays Time Seen by Provider: 06/16/22 08:36 History of Present Illness: 21-year-old female presents emergency room complaining crampy abdominal pain complaining no bowel movement for the past 11 days she tried MiraLAX Dulcolax and Colace with no results she does not use any magnesium citrate or milk of magnesia [id number]. No dysuria urgency or frequency she is a couple days late on her menstrual period she takes hydroxyzine as needed and cetirizine as needed as well. No hematochezia melena hematemesis coffee-ground emesis she complains of cramping more in the right side of her abdomen no sharp pain. MD elicited complaint: abdominal pain Pertinent past history: constipation Onset (ago): day(s) (11) Pain Consistency: intermittent Location: Diffuse Severity: moderate Quality: cramping Radiation: none Migration to: no migration Exacerbating factors: nothing Relieving factors: nothing Associated Symptoms: Reports bloating, change in bowel habits, constipation, GI cramping, nausea and poor appetite; Denies anorexia, belching, change in stool character, chills, coffee ground emesis, diarrhea, dyspepsia, dysuria, excessive flatus, fever(s), heartburn, hematochezia, hematuria, hematemesis, fecal incontinence, loose stools, melena, syncope and vomiting Review of Systems Const: Denies: fever(s) or chills Card: Denies: syncope GI: Reports: nausea, constipation, bloating, GI cramping and change in bowel habits; Denies: vomiting, hematemesis, coffee ground emesis, heartburn, diarrhea, belching, excessive flatus, fecal incontinence, change in stool character, hematochezia or melena : Denies: dysuria, urinary frequency, urinary urgency or hematuria PFS ED PFSH: Medical History Anxiety History of pre-eclampsia Had preeclampsia with first . Migraine with aura No pertinent past medical history neghx: htn,dm,thyroid,dvt/pe PCP: [facility] Surgical History S/P cholecystectomy (06/04/17) Laparoscopic. Diagnosis: Chronic cholecystitis. Performed by Dr. Pereyra [facility] in [place], [place]. S/P tonsillectomy under age 10 Family History Mother Heart disease CHF Hypertension Hyperlipidemia Diabetes Father Hypertension Grandmother Hypertension maternal and paternal Hyperlipidemia maternal and paternal Grandfather Hypertension maternal and paternal Hyperlipidemia maternal and paternal Sister Stroke Family/Other Thyroid condition Maternal Aunt Denies family history of Colon cancer Ovarian cancer Breast cancer Uterine cancer Physical Exam Const: COMMON NORMALS: no acute distress GENERAL APPEARANCE: cooperative and comfortable ORIENTATION/CONSCIOUSNESS: Yes awake, Yes oriented to person, Yes oriented to place and Yes oriented to time HENMT: COMMON NORMALS: normocephalic, atraumatic and hearing grossly normal bilaterally HEAD & SCALP: normocephalic and atraumatic Resp: COMMON NORMALS: normal respiratory effort, No retractions, No use of accessory muscles and clear to auscultation bilaterally AUSCULTATION: clear to auscultation bilaterally Cardio: COMMON NORMALS: regular rate, regular rhythm and No murmurs present (Cardio) RATE: regular rate RHYTHM: regular rhythm GI: COMMON NORMALS: Soft to palpation and No hepatosplenomegaly present AUSCULTATION: Yes normoactive bowel sounds PALPATION: Yes Soft to palpation, No Tenderness to palpation present (GI), No Guarding due to palpation present (GI) and Yes No hepatosplenomegaly present Extremity: COMMON NORMALS: normal to inspection, capillary refill normal, no clubbing, cyanosis or edema, no calf tenderness and no pedal edema Neuro: SENSORIUM/ORIENTATION: Yes oriented to person, Yes oriented to place and Yes oriented to time Skin: COMMON NORMALS: no rashes or lesions noted GENERAL SKIN EXAM: no rashes or lesions noted Course Vital Signs: Vital signs: Vital Signs Temperature 97.6 F 06/16/22 09:02 Pulse Rate 83 06/16/22 09:02 Respiratory Rate 16 06/16/22 09:04 Blood Pressure 105/66 06/16/22 09:25 Pulse Oximetry 98 06/16/22 09:04 MDM - Abdominal Pain Medical Decision Making Labs and imaging reviewed large amount of stool in the KUB. Discussed she is flaccid the patient discharged home on lactulose start MiraLAX for for long-term management and regular bowel movements follow-up primary care Medical Records I reviewed the patient's medical records. Lab Data I reviewed the patient's lab results. Labs/Radiology: Radiology Impressions KUB X-Ray 06/16/22 08:36 Impression: Large amount of fecal material in the colon. Laboratory Results HCG, Qual Negative (Negative) 06/16/22 09:20 Urine Color Yellow (Yellow) 06/16/22 09:20 Urine Appearance Clear (CLEAR) 06/16/22 09:20 Urine pH 6 (5-7) 06/16/22 09:20 Ur Specific [place] 1.015 (1.005-1.030) 06/16/22 09:20 Urine Protein Neg (Negative) 06/16/22 09:20 Urine Glucose (UA) Norm (Normal) 06/16/22 09:20 Urine Ketones Negative (Negative) 06/16/22 09:20 Urine Blood Neg (Negative) 06/16/22 09:20 Urine Nitrate Negative (Negative) 06/16/22 09:20 Urine Bilirubin Neg (Negative) 06/16/22 09:20 Urine Urobilinogen Norm mg/dL (Negative) 06/16/22 09:20 Ur Leukocyte Esterase Negative (Negative) 06/16/22 09:20 Discharge Plan Discharge Patient Disposition: Home Clinical Impression: Constipation Condition: Stable Prescriptions: No Action hydroxyzine HCl 25 mg tablet 25 mg PO BID PRN (Reason: Anxiety) All Day Allergy (cetirizine) 10 mg capsule 20 mg PO DAILY PRN (Reason: allergy symptoms) Discharge Orders: Discharge ED (Routine); Ordered 06/16/22 Ordered By: Bhaskar Ortiz Referrals: Zulma Cross FNP [Primary Care Provider] - Discharge Diet: Clear Liquid Discharge Activity: Increase activity as tolerated Patient Instructions: Opioid Safety, Pain Management Activity Restrictions/Additional Instructions: Seen today for constipation. Recommend you start lactulose take 1 dose every 2 hours until desired result achieved. Prevent future future constipation you can start on MiraLAX 1 capful daily. Follow-up with your primary care doctor. Coding Level of Care Code ED Waste Management Engineer for Maritza Agee
[2022-06-16 09:25] VITALS: BP 105/66
[2022-06-16 09:36] LABS: Add Urine Microscopic? NO; Charge for UA Resulting for Rev
[2022-06-16 09:54] LABS: Bilirubin Urine Neg (Negative); Blood Urine Neg (Negative); Glucose Urine UA Norm (Normal); Ketones Urine Negative (Negative); Leukocyte Esterase Urine Negative (Negative); Nitrate Urine Negative (Negative); Protein Urine Neg (Negative); Specific Gravity, Urine 1.015 (1.005-1.030); Urine Appearance Clear (CLEAR); Urine Color Yellow (Yellow); Urobilinogen Urine Norm (Negative); pH Urine 6 (5-7)
[2022-06-16 10:14] LABS: HCG Qualitative Urine. Negative (Negative)
== END 2022-06-16 10:29 | disposition home or self-care (01) ==
PROVIDERS: Emergency Provider Family Medicine; PCP Nurse Practitioner Family
DX: K59.00 Constipation, unspecified (principal)
CPT/HCPCS: 74018; 81003; 81025; 99283

== ENCOUNTER → 2022-07-24 09:18 | Outpatient (BNVA) | payer BC, MEDICAID, SELFPAY | PROVIDERS: PCP Family Medicine; Visit Provider Family Medicine | DX: F41.1 Generalized anxiety disorder (principal); K58.9 Irritable bowel syndrome, unspecified; R23.3 Spontaneous ecchymoses; E55.9 Vitamin D deficiency, unspecified; R30.0 Dysuria; N39.0 Urinary tract infection, site not specified; R79.89 Other specified abnormal findings of blood chemistry | CPT/HCPCS: 81000; 82306; 85025; 85610 ==

== ENCOUNTER → 2022-10-16 14:54 | Outpatient (BNVA) | payer BC, MEDICAID, SELFPAY | PROVIDERS: PCP Family Medicine; Visit Provider Obstetrics & Gynecology | DX: Z12.4 Encounter for screening for malignant neoplasm of cervix (principal) | CPT/HCPCS: 87624 ==

== ENCOUNTER → 2023-07-20 11:43 | Outpatient (BNVA) | payer BC, MEDICAID, SELFPAY | PROVIDERS: PCP Family Medicine; Visit Provider Nurse Practitioner Family | DX: R50.9 Fever, unspecified (principal) | CPT/HCPCS: 87400; 87426 ==

== ENCOUNTER 2023-12-10 03:28 | Emergency (ER) | payer BC, MEDICAID, SELFPAY ==
[2023-12-10 03:33] VITALS: BP 144/110; PULSE 95; RESP 18; TEMP 36.6; O2SAT 100; BMI 31.8
--- NOTE | 2023-12-10 03:39 | CTR_ITS ---
PROCEDURE INFORMATION: Exam: CT Abdomen And Pelvis Without Contrast Exam date and time: 12/10/2023 4:00 AM Age: 23 years old Clinical indication: Abdominal pain; Flank; Right; Prior surgery; Surgery date: 6+ months; Surgery type: Gb; Additional info: Right flank pain TECHNIQUE: Imaging protocol: Computed tomography of the abdomen and pelvis without contrast. Radiation optimization: All CT scans at this facility use at least one of these dose optimization techniques: automated exposure control; mA and/or kV adjustment per patient size (includes targeted exams where dose is matched to clinical indication); or iterative reconstruction. COMPARISON: CT abdomen pelvis w con* [id number] 01/08/2021 6:59 PM RADIATION DOSE METRICS: Total DLP (mGy-cm): 722.9 FINDINGS: Lungs: Visualized lung bases are clear. Liver: The liver is unremarkable. Gallbladder and biliary ducts: Status post cholecystectomy. No significant biliary ductal dilation. Pancreas: The pancreas is unremarkable. Spleen: The spleen is unremarkable. Adrenal glands: The adrenal glands are unremarkable. Kidneys and ureters: 2.2 cm renal cyst in the right kidney lower pole. Left kidney is normal in appearance. No hydronephrosis or hydroureter. No evidence of renal stones. Stomach and bowel: Nonobstructive bowel-gas pattern. Appendix: The appendix is normal. Intraperitoneal space: No significant free fluid in the abdomen or pelvis. Vasculature: Abdominal aorta and its major branches are within normal limits. Lymph nodes: No pathologically enlarged lymphadenopathy. Urinary bladder: Urinary bladder is within normal limits. Reproductive: Visualized reproductive structures are within normal limits. Bones/joints: No acute osseous findings. Soft tissues: Visualized superficial soft tissues are within normal limits. CT/CT kidney stone [id number] IMPRESSION: No acute findings in the abdomen/pelvis. COMMENTS: Consistent with the [employer]'s Incidental Findings Committee white paper (J Am Nadia Radiol 2018): Any incidental renal lesion less than 1 cm or classified as too small to characterize, or any incidental cystic renal lesion characterized as simple-appearing, is likely benign. No follow-up imaging is recommended for these lesions per consensus recommendations based on imaging criteria.
--- NOTE | 2023-12-10 03:39 | ED_ITS ---
Documented by User: Lj Christie DO 12/10/23 03:41 HPI - Back Pain/Injury 2 General: Chief Complaint: Back Pain/Injury Stated Complaint: Possible Kidney Stone Time Seen by Provider: 12/10/23 03:32 History of Present Illness: Patient presents to the ER with complaints of right-sided flank pain that sharp stabbing in nature and radiates to her groin. Patient said this been going on for couple days it comes and goes but now has come and state. Patient thinks is a kidney stone. Patient does not have a history of any kidney stones but she has a history of chronic kidney infections but she says those are usually dull and achiness is more sharp and stabbing. Review of Systems 2 General: Reports: 10 or more systems reviewed and unremarkable except in HPI and below PFSH ED 2 PFSH: Medical History Migraine with aura No pertinent past medical history neghx: htn,dm,thyroid,dvt/pe PCP: Maureen Brock History of pre-eclampsia Had preeclampsia with first . Anxiety Surgical History S/P cholecystectomy (06/04/17) Laparoscopic. Diagnosis: Chronic [facility]olecystitis. [facility] [place] [place] S/P tonsillectomy under age 10 Family History Mother Heart disease CHF Hypertension Hyperlipidemia Diabetes Father Hypertension Grandmother Hypertension maternal and paternal Hyperlipidemia maternal and paternal Grandfather Hypertension maternal and paternal Hyperlipidemia maternal and paternal Sister Stroke Family/Other Thyroid disease Maternal Aunt Denies family history of Colon cancer Ovarian cancer Breast cancer Uterine cancer Social History Substance/Drug Use: never Physical Exam 2 Const: COMMON NORMALS: no acute distress, average body habitus, patient oriented x3, no limitations, healthy appearing, alert and well nourished HENMT: COMMON NORMALS: normocephalic, atraumatic, hearing grossly normal bilaterally, external ears normal, Normal external nose present and moist oral mucous membranes HEAD & SCALP: normocephalic and atraumatic NOSE: Normal external nose present EXTERNAL EAR: Yes external ears normal Neck/C-Spine: COMMON NORMALS: no JVD Chest: COMMONS NORMALS: normal inspection of the chest and normal palpation of entire chest wall Resp: COMMON NORMALS: normal respiratory effort Cardio: COMMON NORMALS: no JVD, regular rate, regular rhythm, S1 normal heart sound present, S2 normal heart sound present, No gallops present (Cardio), No clicks present (Cardio), No murmurs present (Cardio) and No rub (Cardio) R ATE: regular rate RHYTHM: regular rhythm HEART SOUNDS: S1 normal heart sound present and S2 normal heart sound present GI: COMMON NORMALS: Normal to inspection, nondistended, normoactive bowel sounds present, Soft to palpation, non-tender, No hepatosplenomegaly present and no masses PALPATION: Yes Soft to palpation and Yes No hepatosplenomegaly present Neuro: COMMON NORMALS: patient oriented x3 SENSORIUM/ORIENTATION: Yes alert Course 2 Vital Signs: Vital signs: Vital Signs Temperature 97.9 F 12/10/23 03:33 Pulse Rate 69 12/10/23 06:57 Respiratory Rate 18 12/10/23 03:33 Blood Pressure 116/82 12/10/23 06:57 Pulse Oximetry 96 12/10/23 06:57 Oxygen Delivery Me thod Room Air 12/10/23 06:57 MDM - Back Pain/Injury Medical Records I reviewed the patient's medical records. Labs I reviewed the patient's lab results. 12/10/23 03:35 12/10/23 03:35 Radiology Impressions Abdomen/Pelvis CT 12/10/23 03:39 IMPRESSION: No acute findings in the abdomen/pelvis. COMMENTS: Consistent with the [employer]'s Incidental Findings Committee white paper (J Am Nadia Radiol 2018): Any incidental renal lesion less than 1 cm or classified as too small to characterize, or any incidental cystic renal lesion characterized as simple-appearing, is likely benign. No follow-up imaging is recommended for these lesions per consensus recommendations based on imaging criteria. Laboratory Results WBC 10.48 10^3/uL (3.29-11.43) 12/10/23 03:35 RBC 4.86 10^6/uL (3.85-5.65) 12/10/23 03:35 Hgb 14.40 g/dL (11.27-16.99) 12/10/23 03:35 Hct 43.0 % (36-47) 12/10/23 03:35 MCV 88.5 fl (85-98) 12/10/23 03:35 MCH 29.6 pg (27-33) 12/10/23 03:35 MCHC 33.5 g/dL (30-55) 12/10/23 03:35 RDW 12.3 % (12.1-15.1) 12/10/23 03:35 Plt Count 334 10^3/cmm (157-399) 12/10/23 03:35 MPV 10.5 fL (7.4-10.4) H 12/10/23 03:35 Neut % (Auto) 58.9 % 12/10/23 03:35 Lymph % (Auto) 32.7 % 12/10/23 03:35 Bea[place]gard % (Auto) 6.2 % 12/10/23 03:35 Eos % (Auto) 1.4 % 12/10/23 03:35 Baso % (Auto) 0.5 % 12/10/23 03:35 Neut # (Auto) 6.17 10^3/uL (1.8-7.7) 12/10/23 03:35 Lymph # (Auto) 3.4 10^3/uL (0.8-4.8) 12/10/23 03:35 Bea[place]gard # (Auto) 0.7 10^3/uL (0.2-0.9) 12/10/23 03:35 Eos # (Auto) 0.2 10^3/uL (0.0-0.8) 12/10/23 03:35 Baso # (Auto) 0.1 10^3/uL (0.0-0.1) 12/10/23 03:35 Nucleated RBC % (auto) 0 % 12/10/23 03:35 Nucleated RBCs # 0.0 /100WBC 12/10/23 03:35 Sodium 141 mmol/L (136-145) 12/10/23 03:35 Potassium 4.0 mmol/L (3.5-5.1) 12/10/23 03:35 Chloride 103 mmol/L (98-107) 12/10/23 03:35 Carbon Dioxide 26 mmol/L (22-29) 12/10/23 03:35 Anion Gap 16.0 (5-19) 12/10/23 03:35 BUN 14 mg/dL (6-20) 12/10/23 03:35 Creatinine 0.7 mg/dL (0.5-0.9) 12/10/23 03:35 GFR Calculation 102.0 mL/min (90-130) 12/10/23 03:35 Glucose 86 mg/dL (65-115) 12/10/23 03:35 Calculated Osmolality 292 mOsm/kg (285-295) 12/10/23 03:35 Calcium 9.5 mg/dL (8.5-10.5) 12/10/23 03:35 Total Bilirubin 0.3 mg/dL (0.15-1.2) 12/10/23 03:35 AST 16 U/L (0-32) 12/10/23 03:35 ALT 17 U/L (0-33) 12/10/23 03:35 Alkaline Phosphatase 69 U/L (35-105) 12/10/23 03:35 Total Protein 7.3 g/dL (6.6-8.7) 12/10/23 03:35 Albumin 4.7 g/dL (3.5-5.2) 12/10/23 03:35 Globulin 2.6 g/dL (1.3-4.6) 12/10/23 03:35 HCG, Qual Negative (Negative) 12/10/23 03:35 Urine Color Yellow (Yellow) 12/10/23 03:35 Urine Appearance Cloudy (CLEAR) A 12/10/23 03:35 Urine pH 6 (5-7) 12/10/23 03:35 Ur Specific [place] 1.015 (1.005-1.030) 12/10/23 03:35 Urine Protein 1+ (Negative) H 12/10/23 03:35 Urine Glucose (UA) Norm (Normal) 12/10/23 03:35 Urine Ketones Negative (Negative) 12/10/23 03:35 Urine Blood 3+ (Negative) H 12/10/23 03:35 Urine Nitrate Negative 12/10/23 03:35 Urine Bilirubin Neg (Negative) 12/10/23 03:35 Urine Urobilinogen Neg mg/dL (Negative) 12/10/23 03:35 Ur Leukocyte Esterase 1+ (Negative) H 12/10/23 03:35 Urine RBC 50-80 /hpf (0-2) H 12/10/23 03:35 Urine WBC 10-15 /hpf (0-5) H 12/10/23 03:35 Ur Squamous Epith Cells 10-15 /hpf (0-5) H 12/10/23 03:35 Amorphous Sediment Not Reportable 12/10/23 03:35 Urine Bacteria 1+ /hpf (NONE) H 12/10/23 03:35 Urine Mucus 2+ /hpf 12/10/23 03:35 All radiology interpretation(s) finalized by discharge Discharge Plan Discharge Patient Disposition: Home Clinical Impression: Cystitis Condition: Stable Prescriptions: New Cipro 500 mg tablet 500 mg PO BID Qty: 14 0RF Pyridium 200 mg tablet 200 mg PO Q8H Qty: 6 0RF No Action promethazine-DM 6.25-15 mg/5 mL syrup 5 - 10 ml PO Q6H PRN (Reason: cough) Qty: 240 0RF albuterol sulfate 90 mcg/actuation HFA aerosol inhaler 2 puff inhalation QID PRN (Reason: shortness of breath or wheezing) Qty: 6.7 0RF Discharge Orders: Discharge ED (Routine); Ordered 12/10/23 Ordered By: Bhaskar Ortiz Referrals: Reynaldo Henry MD [Primary Care Provider] - Discharge Diet: Usual diet Discharge Activity: Increase activity as tolerated Patient Instructions: Urinary Tract Infection in Women (ED), Opioid Safety, Pain Management Activity Restrictions/Additional Instructions: Thank you for choosing [facility] for your healthcare needs today. It is very important that you follow up as instructed or that you return to the Emergency Department should you have concerns or if your condition changes or worsens in any way. Sign Out Sign Out Data: Patient Sign Out occurred on 12/10/23 at 06:45. Patient's care was discussed, and care was transferred from Lj Christie DO to Bhaskar Ortiz DO. Coding Level of Care Code ED [employer] for [employer] Documented by User: Bhaskar Ortiz DO 12/10/23 08:45 HPI - Back Pain/Injury 2 General: Chief Complaint: Back Pain/Injury Stated Complaint: Possible Kidney Stone Time Seen by Provider: 12/10/23 03:32 PFSH ED 2 PFSH: Medical History Migraine with aura No pertinent past medical history neghx: htn,dm,thyroid,dvt/pe PCP: Maureen Brock History of pre-eclampsia Had preeclampsia with first . Anxiety Surgical History S/P cholecystectomy (06/04/17) Laparoscopic. Diagnosis: Chronic [facility]olecystitis. [facility] [place] [place] S/P tonsillectomy under age 10 Family History Mother Heart disease CHF Hypertension Hyperlipidemia Diabetes Father Hypertension Grandmother Hypertension maternal and paternal Hyperlipidemia maternal and paternal Grandfather Hypertension maternal and paternal Hyperlipidemia maternal and paternal Sister Stroke Family/Other Thyroid disease Maternal Aunt Denies family history of Colon cancer Ovarian cancer Breast cancer Uterine cancer Social History Substance/Drug Use: never Course 2 Vital Signs: Vital signs: Vital Signs Temperature 97.9 F 12/10/23 03:33 Pulse Rate 69 12/10/23 06:57 Respiratory Rate 18 12/10/23 03:33 Blood Pressure 116/82 12/10/23 06:57 Pulse Oximetry 96 12/10/23 06:57 Oxygen Delivery Me thod Room Air 12/10/23 06:57 MDM - Back Pain/Injury Medical Decision Making Care assumed at change of shift. No leukocytosis CT did not show any evidence of pyelonephritis or ureteral obstruction or renal stone. She is not currently having her menstrual period. Laboratory studies reviewed she does have some hematuria along with some mild leukocytosis 50-88 red blood cells per high-power field and 10-15 white. Will start her on ciprofloxacin also add Pyridium. Labs 12/10/23 03:35 12/10/23 03:35 Radiology Impressions Abdomen/Pelvis CT 12/10/23 03:39 IMPRESSION: No acute findings in the abdomen/pelvis. COMMENTS: Consistent with the [place] [employer]'s Incidental Findings Committee white paper (J Am Nadia Radiol 2018): Any incidental renal lesion less than 1 cm or classified as too small to characterize, or any incidental cystic renal lesion characterized as simple-appearing, is likely benign. No follow-up imaging is recommended for these lesions per consensus recommendations based on imaging criteria. Laboratory Results WBC 10.48 10^3/uL (3.29-11.43) 12/10/23 03:35 RBC 4.86 10^6/uL (3.85-5.65) 12/10/23 03:35 Hgb 14.40 g/dL (11.27-16.99) 12/10/23 03:35 Hct 43.0 % (36-47) 12/10/23 03:35 MCV 88.5 fl (85-98) 12/10/23 03:35 MCH 29.6 pg (27-33) 12/10/23 03:35 MCHC 33.5 g/dL (30-55) 12/10/23 03:35 RDW 12.3 % (12.1-15.1) 12/10/23 03:35 Plt Count 334 10^3/cmm (157-399) 12/10/23 03:35 MPV 10.5 fL (7.4-10.4) H 12/10/23 03:35 Neut % (Auto) 58.9 % 12/10/23 03:35 Lymph % (Auto) 32.7 % 12/10/23 03:35 Beauregard % (Auto) 6.2 % 12/10/23 03:35 Eos % (Auto) 1.4 % 12/10/23 03:35 Baso % (Auto) 0.5 % 12/10/23 03:35 Neut # (Auto) 6.17 10^3/uL (1.8-7.7) 12/10/23 03:35 Lymph # (Auto) 3.4 10^3/uL (0.8-4.8) 12/10/23 03:35 Bea[place]gard # (Auto) 0.7 10^3/uL (0.2-0.9) 12/10/23 03:35 Eos # (Auto) 0.2 10^3/uL (0.0-0.8) 12/10/23 03:35 Baso # (Auto) 0.1 10^3/uL (0.0-0.1) 12/10/23 03:35 Nucleated RBC % (auto) 0 % 12/10/23 03:35 Nucleated RBCs # 0.0 /100WBC 12/10/23 03:35 Sodium 141 mmol/L (136-145) 12/10/23 03:35 Potassium 4.0 mmol/L (3.5-5.1) 12/10/23 03:35 Chloride 103 mmol/L (98-107) 12/10/23 03:35 Carbon Dioxide 26 mmol/L (22-29) 12/10/23 03:35 Anion Gap 16.0 (5-19) 12/10/23 03:35 BUN 14 mg/dL (6-20) 12/10/23 03:35 Creatinine 0.7 mg/dL (0.5-0.9) 12/10/23 03:35 GFR Calculation 102.0 mL/min (90-130) 12/10/23 03:35 Glucose 86 mg/dL (65-115) 12/10/23 03:35 Calculated Osmolality 292 mOsm/kg (285-295) 12/10/23 03:35 Calcium 9.5 mg/dL (8.5-10.5) 12/10/23 03:35 Total Bilirubin 0.3 mg/dL (0.15-1.2) 12/10/23 03:35 AST 16 U/L (0-32) 12/10/23 03:35 ALT 17 U/L (0-33) 12/10/23 03:35 Alkaline Phosphatase 69 U/L (35-105) 12/10/23 03:35 Total Protein 7.3 g/dL (6.6-8.7) 12/10/23 03:35 Albumin 4.7 g/dL (3.5-5.2) 12/10/23 03:35 Globulin 2.6 g/dL (1.3-4.6) 12/10/23 03:35 HCG, Qual Negative (Negative) 12/10/23 03:35 Urine Color Yellow (Yellow) 12/10/23 03:35 Urine Appearance Cloudy (CLEAR) A 12/10/23 03:35 Urine pH 6 (5-7) 12/10/23 03:35 Ur Specific [place] 1.015 (1.005-1.030) 12/10/23 03:35 Urine Protein 1+ (Negative) H 12/10/23 03:35 Urine Glucose (UA) Norm (Normal) 12/10/23 03:35 Urine Ketones Negative (Negative) 12/10/23 03:35 Urine Blood 3+ (Negative) H 12/10/23 03:35 Urine Nitrate Negative 12/10/23 03:35 Urine Bilirubin Neg (Negative) 12/10/23 03:35 Urine Urobilinogen Neg mg/dL (Negative) 12/10/23 03:35 Ur Leukocyte Esterase 1+ (Negative) H 12/10/23 03:35 Urine RBC 50-80 /hpf (0-2) H 12/10/23 03:35 Urine WBC 10-15 /hpf (0-5) H 12/10/23 03:35 Ur Squamous Epith Cells 10-15 /hpf (0-5) H 12/10/23 03:35 Amorphous Sediment Not Reportable 12/10/23 03:35 Urine Bacteria 1+ /hpf (NONE) H 12/10/23 03:35 Urine Mucus 2+ /hpf 12/10/23 03:35 Discharge Plan Discharge Patient Disposition: Home Clinical Impression: Cystitis Condition: Stable Prescriptions: New Cipro 500 mg tablet 500 mg PO BID Qty: 14 0RF Pyridium 200 mg tablet 200 mg PO Q8H Qty: 6 0RF No Action promethazine-DM 6.25-15 mg/5 mL syrup 5 - 10 ml PO Q6H PRN (Reason: cough) Qty: 240 0RF albuterol sulfate 90 mcg/actuation HFA aerosol inhaler 2 puff inhalation QID PRN (Reason: shortness of breath or wheezing) Qty: 6.7 0RF Discharge Orders: Discharge ED (Routine); Ordered 12/10/23 Ordered By: Bhaskar Ortiz Referrals: Reynaldo Henry MD [Primary Care Provider] - Discharge Diet: Usual diet Discharge Activity: Increase activity as tolerated Patient Instructions: Urinary Tract Infection in Women (ED), Opioid Safety, Pain Management Activity Restrictions/Additional Instructions: [facility]. It is very important that you follow up as instructed or that you return to the Emergency Department should you have concerns or if your condition changes or worsens in any way. Sign Out Sign Out Data: Patient Sign Out occurred on 12/10/23 at 06:45. Patient's care was discussed, and care was transferred from Lj Christie DO to Bhaskar Ortiz DO. Coding Level of Care Code ED [employer] for [employer]itza Agee
[2023-12-10 03:47] LABS: Basophils # 0.1 10^3/uL (0.0-0.1); Basophils % 0.5 %; Eosinophils # 0.2 10^3/uL (0.0-0.8); Eosinophils % 1.4 %; Lymphocytes # 3.4 10^3/uL (0.8-4.8); Lymphocytes % 32.7 %; Mean Corpuscular HGB Conc 33.5 g/dL (30-55); Mean Corpuscular Hemoglobin 29.6 pg (27-33); Mean Corpuscular Volume 88.5 fl (85-98); Mean Platelet Volume 10.5 fL (7.4-10.4); Monocytes # 0.7 10^3/uL (0.2-0.9); Monocytes % 6.2 %; Neutrophils # 6.17 10^3/uL (1.8-7.7); Neutrophils % 58.9 %; Nucleated Red Blood Cells % 0 %; Platelet Count 334 10^3/cmm (157-399); Red Blood Count 4.86 10^6/uL (3.85-5.65); Red Cell Distribution Width 12.3 % (12.1-15.1); White Blood Count 10.48 10^3/uL (3.29-11.43)
[2023-12-10 03:52] LABS: HCG Qualitative Urine. Negative (Negative)
[2023-12-10 03:55] LABS: Add Urine Microscopic? YES; Bilirubin Urine Neg (Negative); Blood Urine 3+ (Negative); Glucose Urine UA Norm (Normal); Ketones Urine Negative (Negative); Leukocyte Esterase Urine 1+ (Negative); Nitrate Urine Negative; Protein Urine 1+ (Negative); Specific Gravity, Urine 1.015 (1.005-1.030); Urine Appearance Cloudy (CLEAR); Urine Color Yellow (Yellow); Urobilinogen Urine Neg (Negative); pH Urine 6 (5-7)
[2023-12-10 03:56] LABS: Add Urine Culture? No; Bacteria Urine 1+ /hpf; Mucus Urine 2+ /hpf; RBC Urine 50-80 /hpf (0-2)
[2023-12-10 04:09] LABS: Alanine Aminotransferase 17 U/L (0-33); Albumin Level 4.7 g/dL (3.5-5.2); Alkaline Phosphatase 69 U/L (35-105); Aspartate Amino Transferase 16 U/L (0-32); Blood Urea Nitrogen 14 mg/dL (6-20); Calcium 9.5 mg/dL (8.5-10.5); Carbon Dioxide 26 mmol/L (22-29); Chloride 103 mmol/L (98-107); Creatinine Clr Calc Pharmacy 124.3186; Globulin 2.6 g/dL (1.3-4.6); Glucose 86 mg/dL (65-115); Osmolality Calculated 292 mOsm/kg (285-295); Sodium 141 mmol/L (136-145); Total Bilirubin 0.3 mg/dL (0.15-1.2); Total Protein 7.3 g/dL (6.6-8.7)
[2023-12-10] MEDS: HYDROcodone-acetaminophen 5-325 mg Tablet 1 TAB PO (05:27)
[2023-12-10 06:57] VITALS: BP 116/82; PULSE 69; O2SAT 96
[2023-12-10 08:47] VITALS: BP 121/91; PULSE 73; O2SAT 100
== END 2023-12-10 08:49 | disposition home or self-care (01) ==
PROVIDERS: Emergency Medicine; Emergency Provider Family Medicine; PCP Family Medicine
DX: N30.90 Cystitis, unspecified without hematuria (principal)
CPT/HCPCS: 74176; 80053; 81001; 81025; 85025; 99284

== ENCOUNTER → 2023-12-17 11:11 | Outpatient (BNVA) | payer BC, MEDICAID, SELFPAY | PROVIDERS: PCP Family Medicine; Visit Provider Nurse Practitioner Family | DX: R30.0 Dysuria (principal) | CPT/HCPCS: 81000 ==

== ENCOUNTER → 2024-01-04 08:37 | Outpatient (BNVA) | payer BC, MEDICAID, SELFPAY | PROVIDERS: PCP Family Medicine; Visit Provider Obstetrics & Gynecology | DX: R10.2 Pelvic and perineal pain (principal) | CPT/HCPCS: 76830 ==

== ENCOUNTER 2024-01-27 14:24 | Emergency (ER) | payer BC, MEDICAID, SELFPAY ==
[2024-01-27 14:29] VITALS: BP 126/79; PULSE 67; RESP 16; TEMP 36.5; O2SAT 99; BMI 31.8
--- NOTE | 2024-01-27 14:33 | ED_ITS ---
HPI - Fall General: Chief Complaint: Fall Stated Complaint: foot xray twisted ankle Time Seen by Provider: 01/27/24 14:32 History of Present Illness: Patient comes in today for complaints of injury to the left foot and ankle. 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 Patient reports lateral tenderness. Related Data Previous Rx's Medication Instructions Recorded albuterol sulfate 90 mcg/actuation 2 puff inhalation QID PRN 07/20/23 aerosol inhaler shortness of breath or wheezing #6.7 grams ibuprofen 800 mg tablet 800 mg PO Q8H PRN pain #30 tabs 12/15/23 methocarbamol 750 mg tablet 750 mg PO Q8H PRN back pain #30 12/15/23 tabs Allergies Allergy/AdvReac Type Severity Reaction Status Date / Time Opioids - Morphine Analogues Allergy Severe severe Verified 01/13/24 13:17 neck and spinal pain ketorolac [From Toradol] Allergy Mild vomiting Verified 01/13/24 13:17 Review of Systems General: Reports: 10 or more systems reviewed and unremarkable except in HPI and below PFSH ED PFSH: Medical History Migraine with aura No pertinent past medical history neghx: htn,dm,thyroid,dvt/pe PCP: Maureen Brock History of pre-eclampsia Had preeclampsia with first . Anxiety Surgical History S/P cholecystectomy (06/04/17) Laparoscopic. Diagnosis: Chronic [facility]ole[facility]stitis. [facility] [place] [place] S/P tonsillectomy under age 10 Family History Mother Heart disease CHF Hypertension Hyperlipidemia Diabetes Father Hypertension Grandmother Hypertension maternal and paternal Hyperlipidemia maternal and paternal Grandfather Hypertension maternal and paternal Hyperlipidemia maternal and paternal Sister Stroke Family/Other Thyroid disease Maternal Aunt Denies family history of Colon cancer Ovarian cancer Breast cancer Uterine cancer Social History Smoking and tobacco/nicotine status: never used tobacco/nicotine Substance/Drug Use: never Physical Exam Const: COMMON NORMALS: alert HENMT: COMMON NORMALS: normocephalic and atraumatic HEAD & SCALP: normocephalic and atraumatic Neck/C-Spine: COMMON NORMALS: full ROM Resp: COMMON NORMALS: normal respiratory effort Cardio: COMMON NORMALS: regular rate RATE: regular rate Back/Pelvis: COMMON NORMALS: thoracic and lumbar spine normal to inspection Extremity: COMMON NORMALS: normal to inspection LEFT LOWER EXTREMITY: Yes ankle joint (Lateral tenderness, no significant swelling) Neuro: SENSORIUM/ORIENTATION: Yes alert Skin: COMMON NORMALS: turgor normal GENERAL SKIN EXAM: turgor normal Course Vital Signs: Vital signs: Vital Signs Temperature 97.7 F 01/27/24 14:29 Pulse Rate 67 01/27/24 14:29 Respiratory Rate 16 01/27/24 14:29 Blood Pressure 126/79 01/27/24 14:29 Pulse Oximetry 99 01/27/24 14:29 Oxygen Delivery Me thod Room Air 01/27/24 14:29 MDM - Fall Medical Decision Making Patient comes in today for complaints of injury to the left foot and ankle. On exam patient has no significant swelling or deformity. Patient appears nontoxic. Patient has some tenderness to the lateral aspect of the ankle. Differential diagnosis includes fracture, sprain, dislocation. X-ray noted no fracture. Reviewed exam with patient with recommendation for treatment and follow-up. Patient reported understanding. Lab Data Radiology Impressions Ankle X-Ray 01/27/24 14:38 Impression: There is mild soft tissue swelling without displaced fracture. XR interpretation done by ED provider, pending radiology final review Discharge Plan Discharge Patient Disposition: Home Clinical Impression: Ankle sprain Qualifiers: Encounter type: initial encounter Involved ligament of ankle: unspecified ligament Laterality: left Qualified Code(s): S93.402A - Sprain of unspecified ligament of left ankle, initial encounter Condition: Stable Prescriptions: No Action methocarbamol 750 mg tablet 750 mg PO Q8H PRN (Reason: back pain) Qty: 30 0RF ibuprofen 800 mg tablet 800 mg PO Q8H PRN (Reason: pain) Qty: 30 0RF albuterol sulfate 90 mcg/actuation HFA aerosol inhaler 2 puff inhalation QID PRN (Reason: shortness of breath or wheezing) Qty: 6.7 0RF Discharge Orders: Discharge ED (Routine); Ordered 01/27/24 Ordered By: Gordo Jackson Referrals: Reynaldo Henry MD [Primary Care Provider] - Discharge Diet: Usual diet Discharge Activity: Increase activity as tolerated Patient Instructions: Ankle Sprain (ED) Activity Restrictions/Additional Instructions: Activity as tolerated. Use an elastic bandage for comfort and support. Use crutches as needed until he can bear weight comfortably. Use acetaminophen and ibuprofen to help with pain. Use ice packs for further pain relief. Follow-up with primary care in 1 week for persistent symptoms. Coding Level of Care Code ED [employer] for Maritza Agee
--- NOTE | 2024-01-27 14:38 | XR_ITS ---
WS: [id number] Examination: XR ankle LT min 3V* [id number] Reason for Exam: injury Date: January 27, 2024 Comparison: None. Findings: There is mild lateral soft tissue swelling. The bone density and the ankle mortise are intact. There is no fracture or dislocation. Minimal calcaneal spurring is present. XR/XR ankle LT min 3V* [id number] Impression: There is mild soft tissue swelling without displaced fracture.
--- NOTE | 2024-01-27 14:38 | XR_ITS ---
WS: [id number] Examination: XR foot LT min 3V* [id number] Reason for Exam: injury Date: January 27, 2024 Comparison: None. Findings: There is mild soft tissue swelling. The bone density is maintained as are the joint spaces. There is no displaced fracture. There is no dislocation. Calcaneal spurring is present. XR/XR foot LT min 3V* [id number] Impression: There is mild soft tissue swelling without displaced fracture.
[2024-01-27 15:32] VITALS: BP 115/73; PULSE 73; O2SAT 100
== END 2024-01-27 15:20 | disposition home or self-care (01) ==
PROVIDERS: Emergency Provider Nurse Practitioner Family; PCP Family Medicine
DX: S93.402A Sprain of unspecified ligament of left ankle, initial encounter (principal); X50.1XXA Overexertion from prolonged static or awkward postures, initial encounter
CPT/HCPCS: 73610; 73630; 99283

== ENCOUNTER → 2024-04-24 09:14 | Outpatient (BNVA) | payer BC, MEDICAID, SELFPAY | PROVIDERS: Visit Provider Clinical Nurse Specialist Adult Health | DX: J06.9 Acute upper respiratory infection, unspecified (principal) | CPT/HCPCS: 87400; 87426 ==

== ENCOUNTER → 2024-07-07 15:32 | Outpatient (BNVA) | payer BC, MEDICAID, SELFPAY | PROVIDERS: Visit Provider Family Medicine | DX: E55.9 Vitamin D deficiency, unspecified (principal); R00.2 Palpitations; F41.1 Generalized anxiety disorder; K58.9 Irritable bowel syndrome, unspecified; R53.83 Other fatigue | CPT/HCPCS: 80053; 82306; 82607; 84439; 84443; 85025 ==

== ENCOUNTER 2024-09-07 18:35 | Emergency (ER) | payer BC, MEDICAID, SELFPAY ==
[2024-09-07 18:39] VITALS: BP 112/76; PULSE 99; RESP 18; TEMP 36.8; O2SAT 100; BMI 30.4
[2024-09-07 19:17] LABS: Basophils % 0.1 %; Hematocrit 42.6 % (36-47); Lymphocytes # 0.5 10^3/uL (0.8-4.8); Lymphocytes % 5.2 %; Mean Corpuscular HGB Conc 33.8 g/dL (30-55); Mean Corpuscular Volume 85.9 fl (85-98); Mean Platelet Volume 10.1 fL (7.4-10.4); Monocytes # 0.5 10^3/uL (0.2-0.9); Monocytes % 4.7 %; Neutrophils # 9.37 10^3/uL (1.8-7.7); Neutrophils % 89.6 %; Nucleated Red Blood Cells % 0 %; Platelet Count 298 10^3/cmm (157-399); Red Blood Count 4.96 10^6/uL (3.85-5.65); Red Cell Distribution Width 11.9 % (12.1-15.1); White Blood Count 10.45 10^3/uL (3.29-11.43)
[2024-09-07 19:32] LABS: HCG, Serum Qual Negative (Negative)
[2024-09-07 19:37] LABS: Alanine Aminotransferase 19 U/L (0-33); Albumin Level 4.4 g/dL (3.5-5.2); Alkaline Phosphatase 56 U/L (35-105); Anion Gap 17.9 (5-19); Aspartate Amino Transferase 17 U/L (0-32); Blood Urea Nitrogen 15 mg/dL (6-20); Carbon Dioxide 22 mmol/L (22-29); Chloride 102 mmol/L (98-107); Creatinine Clr Calc Pharmacy 141.7538; Globulin 2.7 g/dL (1.3-4.6); Glomerular Filtration Rate 121.8 mL/min (90-130); Glucose 90 mg/dL (65-115); Lipase 15 U/L (13-60); Osmolality Calculated 286 mOsm/kg (285-295); Potassium 3.9 mmol/L (3.5-5.1); Sodium 138 mmol/L (136-145); Total Bilirubin 0.6 mg/dL (0.15-1.2); Total Protein 7.1 g/dL (6.6-8.7)
--- NOTE | 2024-09-07 20:04 | W.ED.NAVMDI ---
HPI - Nausea/Vomiting/Diarrhea General: Chief complaint: Nausea/Vomiting/Diarrhea Stated complaint: N,V Weak Body ach Time Seen by Provider: 09/07/24 19:54 Source: patient Mode of arrival: ambulatory Limitations: no limitations History of Present Illness: 23-year-old female states has been having diffuse cramping in her abdomen along with nausea vomiting diarrhea states she had multiple episodes of vomiting over the last 2 days. She denies any fevers denies any dysuria states her cramping pain is a 2 out of 10 denies any severe pain. Associated nausea: Yes Associated symtoms: Reports nausea; Denies chest pain or headache(s) Related Data Previous Rx's ?Medication ?Instructions ?Recorded citalopram 20 mg tablet 20 mg PO DAILY #90 tabs 07/07/24 ondansetron 4 mg disintegrating 4 mg PO Q6H PRN nausea and 09/07/24 tablet vomiting #14 tabs Allergies Allergy/AdvReac Type Severity Reaction Status Date / Time Opioids - Morphine Analogues Allergy Severe severe Verified 05/18/24 16:51 neck and spinal pain ketorolac (From Toradol) Allergy Mild vomiting Verified 05/18/24 16:51 Review of Systems Const: Denies: fever(s), chills, body aches or change in appetite ENMT: Denies: throat pain or dental pain Card: Denies: chest pain Resp: Denies: dyspnea GI: Reports: abdominal pain, nausea, vomiting and diarrhea Musc: Denies: neck pain or back pain Skin/Breast: Denies: rash Neuro: Denies: headache(s) PFS ED PFSH: Medical History Palpitations Migraine with aura History of pre-eclampsia Had preeclampsia with first . Anxiety Surgical History S/P cholecystectomy (06/04/17) Laparoscopic. Diagnosis: Chronic [facility]stitis[facility] [place] [place] S/P tonsillectomy under age 10 Family History Mother Heart disease CHF Hypertension Hyperlipidemia Diabetes Father Hypertension Grandmother Hypertension maternal and paternal Hyperlipidemia maternal and paternal Grandfather Hypertension maternal and paternal Hyperlipidemia maternal and paternal Sister Stroke had PFO Family/Other Thyroid disease Maternal Aunt Denies family history of Colon cancer Ovarian cancer Breast cancer Uterine cancer Social History Smoking and tobacco/nicotine status: never used tobacco/nicotine Alcohol intake: never Substance/Drug Use: never Household members: spouse and children Marital status: Number of children: 1 Highest education level completed: Bachelor's Degree Previous occupational history: [employer] Physical Exam Const: COMMON NORMALS: no acute distress, patient oriented x3 and healthy appearing HENMT: COMMON NORMALS: normocephalic and atraumatic HEAD & SCALP: normocephalic and atraumatic Eye: COMMON NORMALS: conjunctivae normal CONJUNCTIVA: Yes conjunctivae normal Neck/C-Spine: COMMON NORMALS: full ROM and supple Chest: COMMONS NORMALS: normal inspection of the chest and normal palpation of entire chest wall Resp: COMMON NORMALS: normal respiratory effort, No retractions, No use of accessory muscles and clear to auscultation bilaterally AUSCULTATION: clear to auscultation bilaterally Cardio: COMMON NORMALS: regular rate, regular rhythm and No murmurs present (Cardio) RATE: regular rate RHYTHM: regular rhythm GI: COMMON NORMALS: Normal to inspection, nondistended, normoactive bowel sounds present, Soft to palpation, non-tender and no masses PALPATION: Yes Soft to palpation Extremity: COMMON NORMALS: normal to inspection and full ROM Neuro: COMMON NORMALS: patient oriented x3, moves all extremities and no focal motor deficits Psych: COMMON NORMALS: mental status grossly normal, Normal thought process present and cooperative THOUGHT PROCESS: Normal thought process present Skin: COMMON NORMALS: no rashes or lesions noted and no wounds GENERAL SKIN EXAM: no rashes or lesions noted Course Vital Signs: Vital signs: Vital Signs Temperature 98.2 F 09/07/24 18:39 Pulse Rate 99 09/07/24 18:39 Respiratory Rate 18 09/07/24 18:39 Blood Pressure 112/76 09/07/24 18:39 Pulse Oximetry 100 09/07/24 18:39 Oxygen Delivery Me thod Room Air 09/07/24 18:39 MDM - Nausea/Vomiting/Diarrhea Medical Decision Making Patient presents here with vomiting diarrhea is likely viral gastritis she feels much improved here after fluids and Zofran abdominal exam is benign blood works normal does not require abdominal CT has no signs of surgical abdomen will prescribe Zofran for home she is to follow-up with PCP return if worsening. Medical Records I reviewed the patient's medical records. Lab Data I reviewed the patient's lab results. 09/07/24 19:03 09/07/24 19:03 Laboratory Results WBC 10.45 10^3/uL (3.29-11.43) 09/07/24 19:03 RBC 4.96 10^6/uL (3.85-5.65) 09/07/24 19:03 Hgb 14.40 g/dL (11.27-16.99) 09/07/24 19:03 Hct 42.6 % (36-47) 09/07/24 19:03 MCV 85.9 fl (85-98) 09/07/24 19:03 MCH 29.0 pg (27-33) 09/07/24 19:03 MCHC 33.8 g/dL (30-55) 09/07/24 19:03 RDW 11.9 % (12.1-15.1) L 09/07/24 19:03 Plt Count 298 10^3/cmm (157-399) 09/07/24 19:03 MPV 10.1 fL (7.4-10.4) 09/07/24 19:03 Neut % (Auto) 89.6 % 09/07/24 19:03 Lymph % (Auto) 5.2 % 09/07/24 19:03 [place] % (Auto) 4.7 % 09/07/24 19:03 Eos % (Auto) 0.0 % 09/07/24 19:03 Baso % (Auto) 0.1 % 09/07/24 19:03 Neut # (Auto) 9.37 10^3/uL (1.8-7.7) H 09/07/24 19:03 Lymph # (Auto) 0.5 10^3/uL (0.8-4.8) L 09/07/24 19:03 [place] # (Auto) 0.5 10^3/uL (0.2-0.9) 09/07/24 19:03 Eos # (Auto) 0.0 10^3/uL (0.0-0.8) 09/07/24 19:03 Baso # (Auto) 0.0 10^3/uL (0.0-0.1) 09/07/24 19:03 Nucleated RBC % (auto) 0 % 09/07/24 19:03 Nucleated RBCs # 0.0 /100WBC 09/07/24 19:03 Sodium 138 mmol/L (136-145) 09/07/24 19:03 Potassium 3.9 mmol/L (3.5-5.1) 09/07/24 19:03 Chloride 102 mmol/L (98-107) 09/07/24 19:03 Carbon Dioxide 22 mmol/L (22-29) 09/07/24 19:03 Anion Gap 17.9 (5-19) 09/07/24 19:03 BUN 15 mg/dL (6-20) 09/07/24 19:03 Creatinine 0.6 mg/dL (0.5-0.9) 09/07/24 19:03 GFR Calculation 121.8 mL/min (90-130) 09/07/24 19:03 Glucose 90 mg/dL (65-115) 09/07/24 19:03 Calculated Osmolality 286 mOsm/kg (285-295) 09/07/24 19:03 Calcium 9.0 mg/dL (8.5-10.5) 09/07/24 19:03 Total Bilirubin 0.6 mg/dL (0.15-1.2) 09/07/24 19:03 AST 17 U/L (0-32) 09/07/24 19:03 ALT 19 U/L (0-33) 09/07/24 19:03 Alkaline Phosphatase 56 U/L (35-105) 09/07/24 19:03 Total Protein 7.1 g/dL (6.6-8.7) 09/07/24 19:03 Albumin 4.4 g/dL (3.5-5.2) 09/07/24 19:03 Globulin 2.7 g/dL (1.3-4.6) 09/07/24 19:03 Lipase 15 U/L (13-60) 09/07/24 19:03 HCG, Qual Negative (Negative) 09/07/24 19:03 Urine Color Yellow (Yellow) 09/07/24 20:05 Urine Appearance Clear (CLEAR) 09/07/24 20:05 Urine pH 6.5 (5-7) 09/07/24 20:05 Ur Specific Bowlegs 1.030 (1.005-1.030) 09/07/24 20:05 Urine Protein Trace (Negative) A 09/07/24 20:05 Urine Glucose (UA) Negative (Normal) 09/07/24 20:05 Urine Ketones 1+ (Negative) H 09/07/24 20:05 Urine Blood Negative (Negative) 09/07/24 20:05 Urine Nitrate Negative (Negative) 09/07/24 20:05 Urine Bilirubin Negative (Negative) 09/07/24 20:05 Urine Urobilinogen 1.0 mg/dL (Negative) 09/07/24 20:05 Ur Leukocyte Esterase Negative (Negative) 09/07/24 20:05 Urine RBC 0-2 /hpf (0-2) 09/07/24 20:05 Urine WBC 0-5 /hpf (0-5) 09/07/24 20:05 Ur Squamous Epith Cells 6-10 /hpf (0-5) 09/07/24 20:05 Amorphous Sediment Not Reportable 09/07/24 20:05 Urine Bacteria 1+ /hpf (NONE) H 09/07/24 20:05 Hyaline Casts 4.11 /lpf 09/07/24 20:05 No radiology studies performed this visit Discharge Plan Discharge Patient Disposition: Home Clinical Impression: Nausea vomiting and diarrhea Condition: Stable Prescriptions: New ondansetron 4 mg tablet,disintegrating 4 mg PO Q6H PRN (Reason: nausea and vomiting) Qty: 14 0RF No Action citalopram 20 mg tablet 20 mg PO DAILY Qty: 90 1RF Discharge Orders: Discharge ED (Routine); Ordered 09/07/24 Ordered By: Nabeel Guajardo Referrals: [facility], [Primary Care Provider] - Discharge Diet: Advance as tolerated Discharge Activity: Resume usual activity Patient Instructions: Acute Nausea and Vomiting (ED) Print Language: [place] Coding Level of Care Code ED Intensive Care Unit Registered Nurse for Maritza Agee
[2024-09-07] MEDS: ondansetron 2 mg/ML SDV 2 mL 4 MG IVP (20:20)
[2024-09-07] MEDS: sodium chloride 0.9% 1,000 ML 999 ML IV (20:21)
[2024-09-07 20:30] LABS: Bilirubin Urine Negative (Negative); Blood Urine Negative (Negative); Glucose Urine UA Negative (Normal); Ketones Urine 1+ (Negative); Leukocyte Esterase Urine Negative (Negative); Nitrate Urine Negative (Negative); Protein Urine Trace (Negative); Urine Appearance Clear (CLEAR); Urine Color Yellow (Yellow); pH Urine 6.5 (5-7)
[2024-09-07 20:35] LABS: Add Urine Microscopic? YES; Bacteria Urine 1+ /hpf; Hyaline Casts Urine 4.11 /lpf; RBC Urine 0-2 /hpf (0-2); WBC Urine 0-5 /hpf (0-5)
[2024-09-07] MEDS: acetaminophen 1,000 MG/100 ML PIGGYBACK 400 MG IV (20:58)
[2024-09-07] MEDS: ondansetron hcl ODT 4 mg Tab PO (20:59)
[2024-09-07 21:02] VITALS: BP 131/86; PULSE 90; O2SAT 100
[2024-09-07 21:35] VITALS: BP 111/68; PULSE 100; O2SAT 100
== END 2024-09-07 21:36 | disposition home or self-care (01) ==
PROVIDERS: Emergency Provider Emergency Medicine
DX: R11.2 Nausea with vomiting, unspecified (principal); R19.7 Diarrhea, unspecified
CPT/HCPCS: 36415; 80053; 81001; 83690; 84703; 85025; 96365; 96375; 99284; J0131; J2405; J7030; Q0162

== ENCOUNTER → 2025-02-16 11:48 | Outpatient (BNVA) | payer BC, MEDICAID, SELFPAY | PROVIDERS: Visit Provider Clinical Nurse Specialist Adult Health | DX: K58.1 Irritable bowel syndrome with constipation (principal); R19.7 Diarrhea, unspecified | CPT/HCPCS: 87045; 87046; 87427; 87449; 87493 ==